=== PATIENT | female | born 1960 | race Hispanic/Latino ===

== ENCOUNTER 2017-11-07 18:49 | Emergency (ER) | payer OTHER, SELFPAY ==
[2017-11-07 19:22] LABS: Urine Blood NEGATIVE (NEG); Urine Glucose NEGATIVE (NEG); Urine Protein NEGATIVE (NEG); Urine Specific Gravity <1.005 (1.005-1.030); Urine pH 5.5 (5.0-7.0)
[2017-11-07 20:08] LABS: Absolute Lymphocytes (CBC) 2.4 K/uL (0.7-4.9); Absolute Monocytes 0.5 K/uL (0.1-1.3); Absolute Neutrophil 5.8 K/uL (1.8-8.0); Basophils % 1.1 % (0-1.3); Eosinophils % 2.2 % (0-4.4); Hematocrit 43.6 % (36.0-45.0); Lymphocytes % 26.7 % (15.3-44.8); MCH 34.1 pg (27.0-35.0); MCV 101.1 fL (80-100); MPV 11.4 fL (7.6-11.3); Monocytes % 5.7 % (3.3-12.3); Protime INR 0.94; RBC Red Blood Cell Count 4.31 M/uL (3.86-4.86)
[2017-11-07 20:25] LABS: ALT/SGPT 30 U/L (12-78); AST/SGOT 19 U/L (15-37); Albumin 3.7 g/dL (3.4-5.0); Alkaline Phosphatase 74 U/L (45-117); BUN Blood Urea Nitrogen 9 mg/dL (7-18); Bicarbonate 21 mmol/L (21-32); Bilirubin Direct < 0.1 mg/dL (0-0.2); Bilirubin Total 0.3 mg/dL (0.2-1.0); CKMB Creatine Kinase MB 1.3 ng/mL (0.3-3.6); Creatine Phosphokinase 85 U/L (26-192); Glucose Level 94 mg/dL (74-106); Magnesium 2.7 mg/dL (1.8-2.4); NT PRO-BNP 79 pg/mL (<125); Potassium 3.3 mmol/L (3.5-5.1); Protein, Total 7.2 g/dL (6.4-8.2); Sodium Level 144 mmol/L (136-145)
--- NOTE | 2017-11-07 20:49 | RAD REPORT ---
EXAM DESCRIPTION: RAD - Chest Single View - 11/07/2017 8:37 pm CLINICAL HISTORY: CHEST PAIN Chest pain. COMPARISON: Chest Single View dated 10/24/2016 FINDINGS: Portable technique limits examination quality. The lungs are grossly clear. The heart is normal in size. No displaced fractures. IMPRESSION: No acute intrathoracic process suspected.
[2017-11-07] MEDS ORDERED: NA CHLORIDE 0.9% 2,000 ML ONE (20:53)
[2017-11-07] MEDS ORDERED: MULTIVITAMINS 10 ML VIAL (INJ) IV ONE (20:53)
[2017-11-07] MEDS ORDERED: THIAMINE 200 MG/2 ML INJ ONE (20:53)
[2017-11-07] MEDS ORDERED: FOLIC ACID 5 MG/ML VIAL ONE (20:54)
[2017-11-07] MEDS ORDERED: PROMETHAZINE 25 MG/ML VIAL ONE (21:03)
[2017-11-07] MEDS ORDERED: POTASSIUM 25 MEQ EFFERV TAB ONE (21:03)
--- NOTE | 2017-11-07 21:57 | ER ---
Nurse's Notes [facility] Name: Alivia Gentile Age: 57 yrs Sex: Female : 1960 Arrival Date: 11/07/2017 Time: 18:52 Bed 24 Private MD: Diagnosis: Chest pain, unspecified;Alcohol abuse;Dehydration Presentation: 11/07 19:07 Presenting complaint: Patient states: "I AM HAVING THIS PAIN UNDER MY BREASTS ON BOTH rv SIDE FOR 2-3 WEEKS NOW. TODAY IT GOT WORSE.". Transition of care: patient was not received from another setting of care. Onset of symptoms was November 07, 2017 at 16:00. Risk Assessment: Do you want to hurt yourself or someone else? Patient reports no desire to harm self or others. Initial Sepsis Screen: Does the patient meet any 2 criteria? No. Patient's initial sepsis screen is negative. Does the patient have a suspected source of infection? No. Patient's initial sepsis screen is negative. Care prior to arrival: None. 19:07 Method Of Arrival: EMS: [facility] rv 19:07 Acuity: EILEEN 3 rv Historical: - Allergies: 19:09 No Known Allergies; rv - Home Meds: 19:09 None [Active]; rv - PMHx: 19:09 Asthma; Bronchitis; rv - Immunization history:: Adult Immunizations up to date. - Social history:: Smoking status: Patient uses tobacco products, smokes one-half pack cigarettes per day. - Ebola Screening: : Patient negative for fever greater than or equal to 101.5 degrees Fahrenheit, and additional compatible Ebola Virus Disease symptoms Patient denies exposure to infectious person Patient denies travel to an Ebola-affected area in the 21 days before illness onset. Screenin:10 Abuse screen: Denies threats or abuse. Denies injuries from another. Nutritional rv screening: No deficits noted. Tuberculosis screening: No symptoms or risk factors identified. Fall Risk None identified. Assessment: 19:09 General: Appears in no apparent distress. comfortable, Behavior is calm, cooperative. rv Pain: Complains of pain in chest. Pain: Pain does not radiate. Neuro: Level of Consciousness is awake, alert, obeys commands, Oriented to person, place, time, situation. Cardiovascular: Capillary refill < 3 seconds. Respiratory: Airway is patent. GI: No signs and/or symptoms were reported involving the gastrointestinal system. : No signs and/or symptoms were reported regarding the genitourinary system. EENT: No signs and/or symptoms were reported regarding the EENT system. Derm: Skin is intact. Vital Signs: 19:11 BP 100 / 59; Pulse 93; Resp 97; Weight 63.5 kg; rv 20:43 BP 107 / 73; Pulse 84; Pulse Ox 94% on R/A; rv 23:07 BP 136 / 64; Pulse 90; rv ED Course: 18:52 Patient arrived in ED. rv 19:09 Triage completed. rv 19:09 Srinivas Keane NP is PHCP. pm1 19:10 Arm band placed on left wrist. rv 19:11 Patient has correct armband on for positive identification. Placed in gown. Bed in low rv position. Call light in reach. Side rails up X 1. Pulse ox on. NIBP on. 19:31 Test, Serum Sent. rv 19:39 Hank Tsang MD is Attending Physician. pm1 20:37 XRAY Chest (1 view) In Process Unspecified. EDMS 22:00 No provider procedures requiring assistance completed. Inserted saline lock: 20 gauge rv in right forearm, using aseptic technique. 22:30 Inserted saline lock: in left forearm, using aseptic technique. rv 23:06 IV discontinued, bleeding controlled, No redness/swelling at site. Pressure dressing rv applied. Administered Medications: 20:55 Drug: Potassium Effervescent Tablet 50 mEq Route: PO; rv 23:07 Follow up: Response: No adverse reaction rv 20:55 Drug: Banana Bag - (NS 0.9% 1000 ml, foLIC Acid 1 mg, Thiamine 100 mg, Multivitamin 1 rv amp) Route: IV; Rate: calculated rate; Site: right antecubital; 23:07 Follow up: Response: No adverse reaction; IV Status: Completed infusion rv 20:55 Drug: NS 0.9% 1000 ml Route: IV; Rate: 1000 ml; Site: right antecubital; rv 23:07 Follow up: Response: No adverse reaction; IV Status: Completed infusion rv Outcome: 21:56 Discharge ordered by . pm1 23:06 Discharged to home via wheelchair. rv 23:06 Condition: improved 23:06 Discharge instructions given to patient. 23:08 Patient left the ED. rv Signatures: Dispatcher [employer] EDMS Marinas, Srinivas, FRAME BENDER FRAME BENDER pm1 Ace Ley, RN RN rv
--- NOTE | 2017-11-07 21:57 | EDPHYS ---
Physician Documentation [facility] Name: Alivia Gentile Age: 57 yrs Sex: Female : 1960 Arrival Date: 11/07/2017 Time: 18:52 Bed 24 Private MD: ED Physician Hank Tsang HPI: 11/07 21:27 This 57 yrs old Female presents to ER via EMS with complaints of chest pain. pm1 21:27 The patient or guardian reports chest pain that is located primarily in the focal point pm1 below right breast and left breast and focal point on xyphoid process. Onset: 3 week(s) ago. The pain does not radiate. Associated signs and symptoms: Pertinent negatives: abdominal pain, cough, headache, shortness of breath, syncope. The chest pain is described as sharp. Duration: The patient or guardian reports a single episode, that is still ongoing. Modifying factors: The symptoms are alleviated by nothing. the symptoms are aggravated by deep breath, palpation of area. Severity of pain: in the emergency department the pain is actually worse. The patient has experienced similar episodes in the past, symptoms have been ongoing for at least 1 year. The patient has not recently seen a physician. Patient drank alcohol prior to arrival and feels nauseated. No vomiting. Historical: - Allergies: 19:09 No Known Allergies; rv - Home Meds: 19:09 None [Active]; rv - PMHx: 19:09 Asthma; Bronchitis; rv - Immunization history:: Adult Immunizations up to date. - Social history:: Smoking status: Patient uses tobacco products, smokes one-half pack cigarettes per day. - Ebola Screening: : Patient negative for fever greater than or equal to 101.5 degrees Fahrenheit, and additional compatible Ebola Virus Disease symptoms Patient denies exposure to infectious person Patient denies travel to an Ebola-affected area in the 21 days before illness onset. ROS: 21:27 Constitutional: Negative for fever, chills, and weight loss, Eyes: Negative for injury, pm1 pain, redness, and discharge, ENT: Negative for injury, pain, and discharge, Neck: Negative for injury, pain, and swelling. 21:27 Respiratory: Negative for shortness of breath, cough, wheezing, and pleuritic chest pain, Back: Negative for injury and pain, : Negative for injury, bleeding, discharge, and swelling, MS/Extremity: Negative for injury and deformity, Skin: Negative for injury, rash, and discoloration, Neuro: Negative for headache, weakness, numbness, tingling, and seizure. 21:27 Cardiovascular: Positive for chest pain, Negative for edema, orthopnea, palpitations. 21:27 Abdomen/GI: Positive for nausea, Negative for abdominal pain, vomiting, diarrhea. Exam: 21:27 Constitutional: This is a well developed, well nourished patient who is awake, alert, pm1 and in no acute distress. Head/Face: Normocephalic, atraumatic. Eyes: Pupils equal round and reactive to light, extra-ocular motions intact. Lids and lashes normal. Conjunctiva and sclera are non-icteric and not injected. Cornea within normal limits. Periorbital areas with no swelling, redness, or edema. ENT: Nares patent. No nasal discharge, no septal abnormalities noted. Tympanic membranes are normal and external auditory canals are clear. Oropharynx with no redness, swelling, or masses, exudates, or evidence of obstruction, uvula midline. Mucous membranes moist. Neck: Trachea midline, no thyromegaly or masses palpated, and no cervical lymphadenopathy. Supple, full range of motion without nuchal rigidity, or vertebral point tenderness. No Meningismus. Cardiovascular: Regular rate and rhythm with a normal S1 and S2. No gallops, murmurs, or rubs. Normal PMI, no JVD. No pulse deficits. Respiratory: Lungs have equal breath sounds bilaterally, clear to auscultation and percussion. No rales, rhonchi or wheezes noted. No increased work of breathing, no retractions or nasal flaring. Abdomen/GI: Soft, non-tender, with normal bowel sounds. No distension or tympany. No guarding or rebound. No evidence of tenderness throughout. 21:27 Back: No spinal tenderness. No costovertebral tenderness. Full range of motion. Skin: Warm, dry with normal turgor. Normal color with no rashes, no lesions, and no evidence of cellulitis. MS/ Extremity: Pulses equal, no cyanosis. Neurovascular intact. Full, normal range of motion. 21:27 Chest/axilla: Inspection: normal, Palpation: tenderness, of the focal point tenderness to xyphoid area and focal point tenderness to lateral aspect below right breast and left breast that is symetrical , that totally reproduces the patient's complaints. 21:27 Neuro: Orientation: is normal, Motor: is normal, moves all fours. 21:27 NSR with occasional PVC pm1 Vital Signs: 19:11 BP 100 / 59; Pulse 93; Resp 97; Weight 63.5 kg; rv 20:43 BP 107 / 73; Pulse 84; Pulse Ox 94% on R/A; rv 23:07 BP 136 / 64; Pulse 90; rv MDM: 19:10 Patient medically screened. pm1 19:30 ED course: Patient refused pain medications offered in the ER. pm1 21:35 Data reviewed: vital signs. Data interpreted: Pulse oximetry: on room air is 97 %. pm1 Interpretation: normal. 21:56 Counseling: I had a detailed discussion with the patient and/or guardian regarding: the pm1 historical points, exam findings, and any diagnostic results supporting the discharge/admit diagnosis, lab results, radiology results, the need for outpatient follow up, to return to the emergency department if symptoms worsen or persist or if there are any questions or concerns that arise at home. 11/07 19:17 Order name: Urine Dipstick--Ancillary (enter results); Complete Time: 19:25 ms 11/07 19:27 Order name: Basic Metabolic Panel pm1 11/07 19:27 Order name: CBC with Diff pm1 11/07 19:27 Order name: Ckmb; Complete Time: 20:28 pm1 11/07 19:27 Order name: CPK; Complete Time: 20:28 pm1 11/07 19:27 Order name: LFT's; Complete Time: 20:28 pm1 11/07 19:27 Order name: Magnesium; Complete Time: 20:28 pm1 11/07 19:27 Order name: NT PRO-BNP; Complete Time: 20:28 pm1 11/07 19:27 Order name: PT-INR; Complete Time: 20:28 pm1 11/07 19:27 Order name: Ptt, Activated; Complete Time: 20:28 pm11/07 19:27 Order name: Troponin (emerg Dept Use Only); Complete Time: 20:46 pm1 11/07 19:27 Order name: Test, Serum; Complete Time: 20:14 pm1 11/07 19:27 Order name: Basic Metabolic Panel; Complete Time: 20:28 EDMS 11/07 19:27 Order name: CBC with Automated Diff; Complete Time: 20:28 EDMS 11/07 19:27 Order name: XRAY Chest (1 view); Complete Time: 20:56 pm1 11/07 19:27 Order name: EKG; Complete Time: 19:27 pm1 11/07 19:27 Order name: Cardiac monitoring; Complete Time: 19:32 pm1 11/07 19:27 Order name: EKG - Nurse/Tech; Complete Time: 19:32 pm1 11/07 19:27 Order name: IV Saline Lock; Complete Time: 19:32 pm1 11/07 19:27 Order name: Labs collected and sent; Complete Time: 19:32 pm1 11/07 19:27 Order name: O2 Per Protocol; Complete Time: 19:32 pm1 11/07 19:27 Order name: O2 Sat Monitoring; Complete Time: 19:32 pm1 11/07 19:27 Order name: Urine Dipstick-Ancillary (obtain specimen); Complete Time: 19:32 pm1 11/07 20:45 Order name: ETOH Level; Complete Time: 21:16 pm1 Administered Medications: 20:55 Drug: Potassium Effervescent Tablet 50 mEq Route: PO; rv 23:07 Follow up: Response: No adverse reaction rv 20:55 Drug: Banana Bag - (NS 0.9% 1000 ml, foLIC Acid 1 mg, Thiamine 100 mg, Multivitamin 1 rv amp) Route: IV; Rate: calculated rate; Site: right antecubital; 23:07 Follow up: Response: No adverse reaction; IV Status: Completed infusion rv 20:55 Drug: NS 0.9% 1000 ml Route: IV; Rate: 1000 ml; Site: right antecubital; rv 23:07 Follow up: Response: No adverse reaction; IV Status: Completed infusion rv Disposition: 11/08 00:32 Co-signature as Attending Physician, Hank Tsang MD. gs Disposition: 11/07/17 21:56 Discharged to Home. Impression: Chest pain, unspecified, Alcohol abuse, Dehydration. - Condition is Stable. - Discharge Instructions: Nonspecific Chest Pain, Chest Wall Pain, Dehydration, Adult, Rehydration, Adult. - Medication Reconciliation Form, Thank You Letter, Antibiotic Education, Prescription Opioid Use form. - Follow up: Emergency Department; When: As needed; Reason: Worsening of condition. Follow up: Private Physician; When: 2 - 3 days; Reason: Recheck today's complaints, Continuance of care, Re-evaluation by your physician. - Problem is new. - Symptoms have improved. Signatures: Dispatcher [employer] EDMS Srinivas Keane, FLASK CLEANER FLASK CLEANER pm1 Hank Tsang MD MD gs Vicente, Ronaldo RN RN rv Corrections: (The following items were deleted from the chart) 11/07 21:37 21:35 Data interpreted: Pulse oximetry: on room air pm1 pm1 23:08 21:56 11/07/2017 21:56 Discharged to Home. Impression: Chest pain, unspecified; Alcohol rv abuse; Dehydration. Condition is Stable. Discharge Instructions: Nonspecific Chest Pain, Chest Wall Pain, Dehydration, Adult, Rehydration, Adult. Forms are Medication Reconciliation Form, Thank You Letter, Antibiotic Education, Prescription Opioid Use. Follow up: Emergency Department; When: As needed; Reason: Worsening of condition. Follow up: Private Physician; When: 2 - 3 days; Reason: Recheck today's complaints, Continuance of care, Re-evaluation by your physician. Problem is new. Symptoms have improved. pm1
--- NOTE | 2017-11-08 06:10 | EKG ---
Test Date: 2017-11-07 Test Time: 20:00:44 Stone And Plate Preparer Apprentice: MEASUREMENT RESULTS: Intervals: Rate: 82 NJ: 150 QRSD: 88 QT: 384 QTc: 448 Cannon: P: 50 NJ: 150 QRS: 62 T: 39 INTERPRETIVE STATEMENTS: Sinus rhythm with occasional premature ventricular complexes Otherwise normal ECG Compared to ECG 10/24/2016 21:18:54 Ventricular premature complex(es) now present Electronically Signed On 11-08-17 06:09:24 CDT by El Harden
== END 2017-11-07 23:08 | disposition home or self-care (01) ==
LOC: ER 18:49
DX: R07.9 Chest pain, unspecified (principal); F10.10 Alcohol abuse, uncomplicated; E86.0 Dehydration; F17.210 Nicotine dependence, cigarettes, uncomplicated
CPT/HCPCS: 36415; 71045; 80048; 80076; 80320; 81003; 82550; 82553; 83735; 83880; 84484; 84703; 85025; 85610; 85730; 93005; 96365; 96366; 99284; J2550; J3411; J7030

== ENCOUNTER 2018-03-24 04:39 | Emergency (ER) | payer OTHER ==
[2018-03-24] MEDS ORDERED: HYDROCODONE/APAP 5/325 MG TAB ONE (05:20)
--- NOTE | 2018-03-24 06:14 | EDPHYS ---
Physician Documentation [facility] Name: Alivia Gentile Age: 58 yrs Sex: Female : 1960 Arrival Date: 03/24/2018 Time: 04:41 Bed 6 Private MD: Nicole Quintana ED Physician Alex Jacobson HPI: 03/24 05:56 This 58 yrs old Female presents to ER via Ambulatory with complaints of pkl Headache, Eye Pain. 05:56 The patient complains of pain to the forehead, right eye and left eye. The patient pkl describes the headache as constant. Onset: The symptoms/episode began/occurred 2 day(s) ago. Associated signs and symptoms: Pertinent positives: Photophobia. Historical: - Allergies: 05:01 No Known Allergies; aa1 - Home Meds: 05:01 ProAir HFA inhalation inhalation [Active]; metoprolol tartrate 25 mg Oral tab 1 tab aa1 once daily [Active]; - PMHx: 05:01 Asthma; Bronchitis; aa1 - PSHx: 05:01 Tubal ligation; aa1 - Immunization history:: Flu vaccine is not up to date. - Social history:: Smoking status: Patient uses tobacco products, smokes one pack cigarettes per day. - Ebola Screening: : No symptoms or risks identified at this time. ROS: 05:56 Eyes: Negative for injury, pain, redness, and discharge, ENT: Negative for injury, pkl pain, and discharge, Neck: Negative for injury, pain, and swelling, Cardiovascular: Negative for chest pain, palpitations, and edema, Respiratory: Negative for shortness of breath, cough, wheezing, and pleuritic chest pain, Abdomen/GI: Negative for abdominal pain, nausea, vomiting, diarrhea, and constipation, Back: Negative for injury and pain, : Negative for injury, bleeding, discharge, and swelling, MS/Extremity: Negative for injury and deformity, Skin: Negative for injury, rash, and discoloration. 05:56 Neuro: Positive for headache. Exam: 05:56 Head/Face: Normocephalic, atraumatic. Eyes: Pupils equal round and reactive to light, pkl extra-ocular motions intact. Lids and lashes normal. Conjunctiva and sclera are non-icteric and not injected. Cornea within normal limits. Periorbital areas with no swelling, redness, or edema. ENT: Nares patent. No nasal discharge, no septal abnormalities noted. Tympanic membranes are normal and external auditory canals are clear. Oropharynx with no redness, swelling, or masses, exudates, or evidence of obstruction, uvula midline. Mucous membranes moist. Neck: Trachea midline, no thyromegaly or masses palpated, and no cervical lymphadenopathy. Supple, full range of motion without nuchal rigidity, or vertebral point tenderness. No Meningismus. Chest/axilla: Normal chest wall appearance and motion. Nontender with no deformity. No lesions are appreciated. Cardiovascular: Regular rate and rhythm with a normal S1 and S2. No gallops, murmurs, or rubs. Normal PMI, no JVD. No pulse deficits. Respiratory: Lungs have equal breath sounds bilaterally, clear to auscultation and percussion. No rales, rhonchi or wheezes noted. No increased work of breathing, no retractions or nasal flaring. Abdomen/GI: Soft, non-tender, with normal bowel sounds. No distension or tympany. No guarding or rebound. No evidence of tenderness throughout. Back: No spinal tenderness. No costovertebral tenderness. Full range of motion. Skin: Warm, dry with normal turgor. Normal color with no rashes, no lesions, and no evidence of cellulitis. MS/ Extremity: Pulses equal, no cyanosis. Neurovascular intact. Full, normal range of motion. Neuro: Awake and alert, GCS 15, oriented to person, place, time, and situation. Cranial nerves II-XII grossly intact. Motor strength 5/5 in all extremities. Sensory grossly intact. Cerebellar exam normal. Normal gait. Vital Signs: 05:01 BP 144 / 93; Pulse 88; Resp 18; Temp 97.1; Pulse Ox 96% on R/A; Weight 66.68 kg; Height aa1 5 ft. 1 in. (154.94 cm); Pain 6/10; 06:13 BP 101 / 65; Pulse 68; Resp 16; Pulse Ox 96% on R/A; ak1 05:01 Body Mass Index 27.78 (66.68 kg, 154.94 cm) aa1 MDM: 05:54 Patient medically screened. pk 06:11 Data reviewed: vital signs, nurses notes, radiologic studies, CT scan. pk 12/26 04:55 Order name: CT Head Brain wo Cont aa1 Administered Medications: 05:18 Drug: [place] 5 mg-325 mg 1 tabs Route: PO; aa1 06:18 Follow up: Response: No adverse reaction ak1 Disposition: 03/24/18 06:12 Discharged to Home. Impression: Acute headache. Pain both eyes. - Condition is Stable. - Prescriptions for Ultram 50 mg Oral Tablet - take 1 tablet by ORAL route every 8 hours As needed; 20 tablet. - Work release form, Medication Reconciliation Form, Thank You Letter, Antibiotic Education, Prescription Opioid Use form. - Follow up: Jaswinder Dominguez MD; When: 2 - 3 days; Reason: Re-evaluation by your physician. - Problem is new. - Symptoms have improved. Signatures: Dispatcher [employer] EDRossi Tolentino RN RN aa1 Alex Jacobson MD MD pkl Lora Lyon RN RN ak1 Corrections: (The following items were deleted from the chart) 06:29 06:12 03/24/2018 06:12 Discharged to Home. Impression: Acute headache. Pain both eyes. ak1 Condition is Stable. Forms are Medication Reconciliation Form, Thank You Letter, Antibiotic Education, Prescription Opioid Use. Follow up: Jaswinder Dominguez; When: 2 - 3 days; Reason: Re-evaluation by your physician. Problem is new. Symptoms have improved. pkl
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
--- NOTE | 2018-03-24 08:40 | RAD REPORT ---
EXAM DESCRIPTION: CT - Head Brain Wo Cont - 03/24/2018 6:22 am CLINICAL HISTORY: Headache, photophobia A preliminary report was provided at the time of the study and reviewed prior to final report. COMPARISON: None. TECHNIQUE: Axial 5 mm thick images of the head were obtained without IV contrast. All CT scans are performed using dose optimization technique as appropriate and may include automated exposure control or mA/KV adjustment according to patient size. FINDINGS: No intracranial hemorrhage, mass, edema or shift of mid-line structures. No acute infarcti on changes seen. No abnormal extra-axial fluid collections. Ventricles are normal. Mastoid air cells and visualized portions of the paranasal sinuses are clear. No acute bony findings. IMPRESSION: Negative non-contrast CT head examination.
== END 2018-03-24 06:29 | disposition home or self-care (01) ==
LOC: ER 04:39
DX: H57.13 Ocular pain, bilateral (principal); R51 Headache; J45.909 Unspecified asthma, uncomplicated; F17.210 Nicotine dependence, cigarettes, uncomplicated; Z79.899 Other long term (current) drug therapy
CPT/HCPCS: 70450; 99285

== ENCOUNTER 2018-03-26 17:30 | Emergency (ER) | payer OTHER ==
[2018-03-26 19:43] LABS: Absolute Lymphocytes (CBC) 2.7 K/uL (0.7-4.9); Absolute Monocytes 0.2 K/uL (0.1-1.3); Absolute Neutrophil 4.6 K/uL (1.8-8.0); Basophils % 0.9 % (0-1.3); Eosinophils % 3.3 % (0-4.4); Lymphocytes % 34.1 % (15.3-44.8); MPV 11.3 fL (7.6-11.3); Monocytes % 2.8 % (3.3-12.3); Protime INR 0.98; RBC Red Blood Cell Count 4.78 M/uL (3.86-4.86)
--- NOTE | 2018-03-26 19:53 | RAD REPORT ---
EXAM DESCRIPTION: Reji Single View03/26/2018 6:57 pm CLINICAL HISTORY: Chest pain COMPARISON: October 2017 FINDINGS: Mild interstitial lung opacities appear chronic. The lungs appear clear of acute infiltra te. The heart is normal size . Right-sided aortic arch
[2018-03-26 20:06] LABS: ALT/SGPT 30 U/L (12-78); AST/SGOT 18 U/L (15-37); Albumin 3.8 g/dL (3.4-5.0); Alkaline Phosphatase 88 U/L (45-117); BUN Blood Urea Nitrogen 19 mg/dL (7-18); Bicarbonate 25 mmol/L (21-32); Bilirubin Direct < 0.1 mg/dL (0-0.2); Bilirubin Total 0.2 mg/dL (0.2-1.0); Glucose Level 157 mg/dL (74-106); Magnesium 2.4 mg/dL (1.8-2.4); NT PRO-BNP 65 pg/mL (<125); Potassium 3.7 mmol/L (3.5-5.1); Protein, Total 7.9 g/dL (6.4-8.2); Sodium Level 139 mmol/L (136-145); Troponin (Emerg Dept Use Only) < 0.02 ng/mL (0.0-0.045)
[2018-03-26 20:17] LABS: Blood Morphology Comment NOT SEEN (NOT SEEN); Platelet Estimate ADEQ; Platelets, Giant FEW; Urine White Blood Cell Casts OK
[2018-03-26 20:31] LABS: Urine Blood NEGATIVE (NEG); Urine Glucose NEGATIVE (NEG); Urine Protein NEGATIVE (NEG); Urine Specific Gravity 1.025 (1.005-1.030)
--- NOTE | 2018-03-26 20:55 | RAD REPORT ---
EXAM DESCRIPTION: MRI - Brain Wo Cont - 03/26/2018 8:39 pm CLINICAL HISTORY: Visual disturbance COMPARISON: March [address] TECHNIQUE: Axial, sagittal, and coronal magnetic resonance images of the brain were obtained. FINDINGS: No abnormal signal is present within the brain. Diffusion-weighted/ADC mapping does not reveal evidence of acute infarction. The ventricles are normal caliber. An extra-axial fluid collection is not noted. The sinuses and mastoids are clear. IMPRESSION: Unremarkable unenhanced brain MRI
[2018-03-26] MEDS ORDERED: DEXAMETHASONE 10 MG/ML VIAL ONE (22:11)
[2018-03-26] MEDS ORDERED: METOCLOPRAMIDE 10 MG/2mL INJ ONE (22:11)
[2018-03-26] MEDS ORDERED: DIPHENHYDRAMINE 50 MG/ML VIAL ONE (22:11)
[2018-03-26 22:21] LABS: Appearance CLEAR (CLEAR); Body Fluid Source CSF; Color of fluid Colorless (COLORLESS); Fluid Total Volume 8 ml
[2018-03-26 22:23] LABS: Body Fluid WBC 0 /mm^3
[2018-03-26 22:39] LABS: CSF Glucose 71 mg/dL (40-70)
[2018-03-26 22:40] LABS: Appearance CLEAR (CLEAR); Body Fluid Source CSF; Color of fluid Colorless (COLORLESS)
[2018-03-26 22:41] LABS: Body Fluid WBC 2 /mm^3
--- NOTE | 2018-03-26 23:34 | EDPHYS ---
Physician Documentation [facility] Name: Alivia Gentile Age: 58 yrs Sex: Female : 1960 Arrival Date: 03/26/2018 Time: 17:36 Bed 8 Private MD: ED Physician Philippe Jimenez HPI: 03/26 19:26 This 58 yrs old Female presents to ER via Ambulatory with complaints of jr8 headache. 19:26 The patient's problem is reported as visual difficulty, blurred vision, headache. jr8 Onset: The symptoms/episode began/occurred gradually, 2 week(s) ago. Duration: The episode is continuous. The symptoms are alleviated by nothing. The symptoms are aggravated by nothing. Associated signs and symptoms: The patient has no apparent associated signs or symptoms. Severity of symptoms: At their worst the symptoms were moderate in the emergency department the symptoms are unchanged. Patient's baseline: Neuro: alert and fully oriented, Motor: no deficits, Ambulation: walks without assistance, Speech: normal. The patient has not experienced similar symptoms in the past. The patient has been recently seen by a physician:. Patient with continued headache and blurred vision for the past two weeks. Seen in the ED here on the 24 of March and had negative CT head without contrast. Saw PCP and was referred to ophthalmology. Was seen and found to have papillary edema. By his request was sent back to ED for further evaluation. Patient with continued symptoms. Nurse notified staff of initial low heart rate but without chest pain, shortness of breath, or feeling of syncope . Historical: - Allergies: 18:32 No Known Allergies; aj - Home Meds: 18:32 metoprolol tartrate 25 mg Oral tab 1 tab once daily [Active]; aj - PMHx: 18:32 Bronchitis; Asthma; Iregular Heart Rate; aj - PSHx: 18:32 Tubal ligation; aj - Immunization history:: Adult Immunizations up to date. - Social history:: Smoking status: Patient uses tobacco products, smokes one-half pack cigarettes per day. - Ebola Screening: : Patient negative for fever greater than or equal to 101.5 degrees Fahrenheit, and additional compatible Ebola Virus Disease symptoms Patient denies exposure to infectious person Patient denies travel to an Ebola-affected area in the 21 days before illness onset No symptoms or risks identified at this time. ROS: 19:26 Eyes: Negative for injury, pain, redness, and discharge, ENT: Negative for injury, jr8 pain, and discharge, Neck: Negative for injury, pain, and swelling, Cardiovascular: Negative for chest pain, palpitations, and edema, Respiratory: Negative for shortness of breath, cough, wheezing, and pleuritic chest pain, Abdomen/GI: Negative for abdominal pain, nausea, vomiting, diarrhea, and constipation, Back: Negative for injury and pain, MS/Extremity: Negative for injury and deformity, Skin: Negative for injury, rash, and discoloration. 19:26 Neuro: Positive for dizziness, headache, visual changes, Negative for hearing loss, loss of consciousness, numbness, seizure activity, speech changes, syncope, near syncope, tingling, tinnitus, tremor, weakness. Exam: 19: Radiologist reports: negative for acute findings jr8 19:26 Eyes: Pupils equal round and reactive to light, extra-ocular motions intact. Lids and lashes normal. Conjunctiva and sclera are non-icteric and not injected. Cornea within normal limits. Periorbital areas with no swelling, redness, or edema. ENT: Nares patent. No nasal discharge, no septal abnormalities noted. Tympanic membranes are normal and external auditory canals are clear. Oropharynx with no redness, swelling, or masses, exudates, or evidence of obstruction, uvula midline. Mucous membranes moist. Neck: Trachea midline, no thyromegaly or masses palpated, and no cervical lymphadenopathy. Supple, full range of motion without nuchal rigidity, or vertebral point tenderness. No Meningismus. Cardiovascular: Regular rate and rhythm with a normal S1 and S2. No gallops, murmurs, or rubs. Normal PMI, no JVD. No pulse deficits. Respiratory: Lungs have equal breath sounds bilaterally, clear to auscultation and percussion. No rales, rhonchi or wheezes noted. No increased work of breathing, no retractions or nasal flaring. Abdomen/GI: Soft, non-tender, with normal bowel sounds. No distension or tympany. No guarding or rebound. No evidence of tenderness throughout. Back: No spinal tenderness. No costovertebral tenderness. Full range of motion. Skin: Warm, dry with normal turgor. Normal color with no rashes, no lesions, and no evidence of cellulitis. MS/ Extremity: Pulses equal, no cyanosis. Neurovascular intact. Full, normal range of motion. 19:26 Neuro: Orientation: to person, place, time \T\ situation. Mentation: is normal, Memory: is normal, immediate memory is intact, recent memory is intact, remote memory is intact, Cranial nerves: CN I not tested, CN II- XII are normal as tested, visual benitez are intact. double vision in periphery . extraocular movements are intact, Facial palsy and sensory deficits are absent. Nystagmus is absent. Speech is clear and appropriate. Tongue strength is normal, Cerebellar function: normal finger to nose testing, heel to glasgow testing is normal, Motor: moves all fours, strength is 5/5 in all extremities, Sensation: no obvious gross deficits, Gait: not tested. seizure activity, is not displayed by the patient, Abnormal movements: there are no abnormal movements. Vital Signs: 18:32 BP 122 / 74; Pulse 66; Resp 17; Temp 97.7; Pulse Ox 97% on R/A; Weight 67.13 kg; Height aj 5 ft. 1 in. (154.94 cm); 18:32 Pulse 29; aj 19:41 BP 131 / 86; Pulse 76; Resp 14; Pulse Ox 96% on R/A; tl2 20:45 BP 137 / 72; Pulse 86; Resp 18; Pulse Ox 97% on R/A; tl2 21:41 BP 130 / 70; Pulse 80; Resp 15; Pulse Ox 95% on R/A; tl2 22:18 BP 119 / 83; Pulse 75; Resp 13; Pulse Ox 97% on R/A; tl2 22:57 BP 112 / 77; Pulse 91; Resp 18; Pulse Ox 97% on R/A; tl2 23:52 BP 132 / 82; Pulse 91; Resp 18; Pulse Ox 95% ; Pain 4/10; tl2 18:32 Body Mass Index 27.96 (67.13 kg, 154.94 cm) aj 18:32 verified with palpable pulse aj NIH Stroke Scale Scores: 19:26 NIHSS Score: 0 jr8 Procedures: 23:28 Lumbar Puncture: Patient placed in left lateral decubitus position. Prepped with jr8 Betadine. Draped using sterile technique. Collected 8 ml's of clear fluid. Sample sent to lab. Puncture site dressed with band aid, Patient tolerated well. Opening pressure 15 cmH2O. MDM: 18:39 Patient medically screened. [facility] 23:28 Data reviewed: vital signs, nurses notes, lab test result(s), EKG, radiologic studies, jr8 CT scan, MRI. Data interpreted: Pulse oximetry: on room air is 97 %. Interpretation: normal. Counseling: I had a detailed discussion with the patient and/or guardian regarding: the historical points, exam findings, and any diagnostic results supporting the discharge/admit diagnosis, lab results, radiology results, the need for outpatient follow up, a neurologist, to return to the emergency department if symptoms worsen or persist or if there are any questions or concerns that arise at home. 23:28 ED course: Negative for acute MRI or CSF findings. Patient without acute neurologic [facility] deficit. Will send home for further neurological evaluation to be worked up as outpatient at this time. If worse she knows to immediately come back . 03/26 18:40 Order name: Basic Metabolic Panel; Complete Time: 20:09 [facility] 03/26 18:40 Order name: CBC with Diff; Complete Time: 20:21 [facility] 03/26 18:40 Order name: LFT's; Complete Time: 20:09 [facility] 03/26 18:40 Order name: Magnesium; Complete Time: 20:09 [facility] 03/26 18:40 Order name: NT PRO-BNP; Complete Time: 20:09 [facility] 03/26 18:40 Order name: PT-INR; Complete Time: 19:49 [facility] 03/26 18:40 Order name: Troponin (emerg Dept Use Only); Complete Time: 20:09 [facility] 03/26 18:40 Order name: XRAY Chest (1 view); Complete Time: 20:09 [facility] 03/26 19:30 Order name: Urine Dipstick--Ancillary (enter results); Complete Time: 20:32 2 03/26 19:53 Order name: CBC Smear Scan; Complete Time: 20:21 EDMS 03/26 21:48 Order name: CSF Bacterial Antigens (tube 1); Complete Time: 22:43 [facility] 03/26 21:48 Order name: Csf Culture [facility] 03/26 21:48 Order name: Fluid Cell Count,Body; Complete Time: 22:43 [facility] 03/26 21:48 Order name: Spinal Fluid Profile; Complete Time: 22:43 03/26 18:40 Order name: EKG; Complete Time: 18:41 03/26 18:40 Order name: Cardiac monitoring; Complete Time: 19:09 03/26 18:40 Order name: EKG - Nurse/Tech; Complete Time: 19:14 03/26 18:40 Order name: IV Saline Lock; Complete Time: 20:08 03/26 18:40 Order name: Labs collected and sent; Complete Time: 19:32 03/26 18:40 Order name: O2 Per Protocol; Complete Time: 19:09 03/26 18:40 Order name: O2 Sat Monitoring; Complete Time: 19:09 03/26 19:08 Order name: MRI - Brain Wo Cont; Complete Time: 20:56 03/26 19:16 Order name: LP Consents; Complete Time: 19:16 03/26 19:16 Order name: LP Setup; Complete Time: 19:16 Administered Medications: 22:13 Drug: Reglan 10 mg Route: IVP; Site: right antecubital; tl2 23:00 Follow up: Response: No adverse reaction; Pain is decreased tl2 22:14 Drug: Benadryl 12.5 mg Route: IVP; Site: right antecubital; tl2 23:00 Follow up: Response: No adverse reaction; Pain is decreased tl2 22:14 Drug: Decadron - Dexamethasone 10 mg Route: IVP; Site: right antecubital; tl2 23:00 Follow up: Response: No adverse reaction; Pain is decreased tl2 Disposition: 03/26/18 23:33 Discharged to Home. Impression: Migraine, Visual disturbances. - Condition is Stable. - Discharge Instructions: Migraine Headache. - Medication Reconciliation Form, Thank You Letter, Antibiotic Education, Prescription Opioid Use, Work release form form. - Follow up: Jim Clark MD; When: 2 - 3 days; Reason: Recheck today's complaints, Continuance of care, Re-evaluation by your physician. - Problem is new. - Symptoms have improved. NIH Stroke Scale - NIH Stroke Score Date: 03/26/2018 Time: 19:26 Total Score = 0 1a. Level of Consciousness (LOC) - 0(Alert) 1b. Level of Consciousness (LOC) (Year \T\ Age) - 0(Both) 1c. LOC Commands (Open \T\ Closes Eyes/Hospice Volunteer Coordinator) - 0(Both) 2. Best Gaze (Lateral Gaze Paresis) - 0(Normal) 3. Visual Field Loss - 0(No visual loss) 4. Facial Palsy - 0(Normal) 5a. Left Arm: Motor (10-second hold) - 0(No drift) 5b. Right Arm: Motor (10-second hold) - 0(No drift) 6a. Left Leg: Motor (5-second hold - always test supine) - 0(No drift) 6b. Right Leg: Motor (5-second hold - always test supine) - 0(No drift) 7. Limb Ataxia (finger/nose \T\ heel/glasgow - test with eyes open) - 0(Absent) 8. Sensory Loss (pinprick arms/legs/face) - 0(Normal) 9. Best Language: Aphasia (description/naming/reading) - 0(No aphasia) 10. Dysarthria (speech clarity - read or repeat words) - 0(Normal) 11. Extinction and Inattention (visual/tactile/auditory/spatial/personal) - 0(No abnormality) Initials: jr8 Addendum: 03/30/2018 11:10 Co-signature as Attending Physician, Philippe Jimenez MD I agree with the [facility] assessment and plan of care. Signatures: Dispatcher [employer] Shauna Madera RN RN aj Anderson, Corey, MD MD [facility] Kameron Hall PA PA jr8 Sharon Rutherford RN RN tl2 Corrections: (The following items were deleted from the chart) 03/26 19:29 19:26 Neuro: Positive for headache, visual changes, jrVaibhav jr8 23:31 23:28 Lumbar Puncture: Patient placed in left lateral decubitus position. jr8 Prepped with Betadine. Draped using sterile technique. Collected 8 ml's of clear fluid. Sample sent to lab. Puncture site dressed with band aid, Patient tolerated well. jr8 03/27 00:08 03/26 23:33 03/26/2018 23:33 Discharged to Home. Impression: Migraine; Visual tl2 disturbances. Condition is Stable. Forms are Medication Reconciliation Form, Thank You Letter, Antibiotic Education, Prescription Opioid Use. Follow up: Jim Clark; When: 2 - 3 days; Reason: Recheck today's complaints, Continuance of care, Re-evaluation by your physician. Problem is new. Symptoms have improved. jr8
--- NOTE | 2018-03-26 23:34 | ER ---
Nurse's Notes [facility] Name: Alivia Gentile Age: 58 yrs Sex: Female : 1960 Arrival Date: 03/26/2018 Time: 17:36 Bed 8 Private MD: Diagnosis: Migraine;Visual disturbances Presentation: 03/26 18:30 Presenting complaint: Patient states: Reports headache and blurred vision that started aj 2 weeks ago. Patient seen in this ER for same complaint and followed up with PCP, then referred to Dr Dominguez. Sent here by Dr Dominguez for MRI/MRV and lumbar puncture. Transition of care: patient was not received from another setting of care. Onset of symptoms was March 12, 2018. Risk Assessment: Do you want to hurt yourself or someone else? Patient reports no desire to harm self or others. Initial Sepsis Screen: Does the patient meet any 2 criteria? No. Patient's initial sepsis screen is negative. Does the patient have a suspected source of infection? No. Patient's initial sepsis screen is negative. Care prior to arrival: None. 18:30 Method Of Arrival: Ambulatory 18:30 Acuity: EILEEN 3 aj Triage Assessment: 18:32 General: Appears in no apparent distress. comfortable, Behavior is calm, cooperative, aj appropriate for age. Pain: Complains of pain in face and scalp. Neuro: Level of Consciousness is awake, alert, obeys commands, Oriented to person, place, time, situation, Appropriate for age Reports blurred vision headache. Respiratory: Airway is patent Respiratory effort is even, unlabored, Respiratory pattern is regular, symmetrical. Derm: Skin is intact, is healthy with good turgor, Skin is pink, warm \T\ dry. normal. Historical: - Allergies: 18:32 No Known Allergies; aj - Home Meds: 18:32 metoprolol tartrate 25 mg Oral tab 1 tab once daily [Active]; aj - PMHx: 18:32 Bronchitis; Asthma; Iregular Heart Rate; aj - PSHx: 18:32 Tubal ligation; aj - Immunization history:: Adult Immunizations up to date. - Social history:: Smoking status: Patient uses tobacco products, smokes one-half pack cigarettes per day. - Ebola Screening: : Patient negative for fever greater than or equal to 101.5 degrees Fahrenheit, and additional compatible Ebola Virus Disease symptoms Patient denies exposure to infectious person Patient denies travel to an Ebola-affected area in the 21 days before illness onset No symptoms or risks identified at this time. Screenin:37 Abuse screen: Denies threats or abuse. Denies injuries from another. Nutritional hb screening: No deficits noted. Tuberculosis screening: No symptoms or risk factors identified. Fall Risk Total Alvarado Fall Scale indicates Low Risk Score (25-44 pts). Fall prevention measures have been instituted. Frequent Obs/Assesments occuring As available Patient and Family Educated on Fall Prevention Program and strategies. Assessment: 18:30 General: Appears in no apparent distress. Behavior is calm, cooperative. Pain: Pain hb currently is 3 out of 10 on a pain scale. Neuro: Level of Consciousness is awake, alert, obeys commands, Oriented to person, place, time, situation, Reports headache. Cardiovascular: Heart tones S1 S2 present Capillary refill < 3 seconds Patient's skin is warm and dry. Respiratory: Airway is patent Trachea midline Respiratory effort is even, unlabored, Respiratory pattern is regular, symmetrical, Breath sounds are clear bilaterally. GI: No signs and/or symptoms were reported involving the gastrointestinal system. : No signs and/or symptoms were reported regarding the genitourinary system. EENT: No signs and/or symptoms were reported regarding the EENT system. Derm: Skin is intact, is healthy with good turgor, Skin is pink, warm \T\ dry. Musculoskeletal: No signs and/or symptoms reported regarding the musculoskeletal system. 19:42 General: Appears in no apparent distress. uncomfortable, Behavior is calm, cooperative, tl2 appropriate for age. Pain: Complains of pain in headache Pain currently is 9 out of 10 on a pain scale. Neuro: Level of Consciousness is awake, alert, obeys commands, Oriented to person, place, time, situation, Reports headache frontal area. Cardiovascular: Denies chest pain. Respiratory: Airway is patent Respiratory effort is even, unlabored, Respiratory pattern is regular, symmetrical. GI: No signs and/or symptoms were reported involving the gastrointestinal system. : No signs and/or symptoms were reported regarding the genitourinary system. Derm: Skin is pink, warm \T\ dry. 20:49 Reassessment: Patient appears in no apparent distress at this time. Patient and/or tl2 family updated on plan of care and expected duration. Pain level reassessed. Patient is alert, oriented x 3, equal unlabored respirations, skin warm/dry/pink. pt returned from MRI, awaiting PA for LP. 22:00 Reassessment: Patient appears in no apparent distress at this time. Patient and/or tl2 family updated on plan of care and expected duration. Pain level reassessed. Patient is alert, oriented x 3, equal unlabored respirations, skin warm/dry/pink. 23:52 Reassessment: Patient appears in no apparent distress at this time. Patient and/or tl2 family updated on plan of care and expected duration. Pain level reassessed. Patient is alert, oriented x 3, equal unlabored respirations, skin warm/dry/pink. Pt verbalized understanding of discharge instructions, need for follow up. Vital Signs: 18:32 BP 122 / 74; Pulse 66; Resp 17; Temp 97.7; Pulse Ox 97% on R/A; Weight 67.13 kg; Height aj 5 ft. 1 in. (154.94 cm); 18:32 Pulse 29; aj 19:41 BP 131 / 86; Pulse 76; Resp 14; Pulse Ox 96% on R/A; tl2 20:45 BP 137 / 72; Pulse 86; Resp 18; Pulse Ox 97% on R/A; tl2 21:41 BP 130 / 70; Pulse 80; Resp 15; Pulse Ox 95% on R/A; tl2 22:18 BP 119 / 83; Pulse 75; Resp 13; Pulse Ox 97% on R/A; tl2 22:57 BP 112 / 77; Pulse 91; Resp 18; Pulse Ox 97% on R/A; tl2 23:52 BP 132 / 82; Pulse 91; Resp 18; Pulse Ox 95% ; Pain 4/10; tl2 18:32 Body Mass Index 27.96 (67.13 kg, 154.94 cm) aj 18:32 verified with palpable pulse aj Vitals: 19:41 Cardiac Rhythm Assessment Sinus rhythm W/unifocal PVC's. tl2 21:41 Cardiac Rhythm Assessment Sinus rhythm W/unifocal PVC's. tl2 NIH Stroke Scale Scores: 19:26 NIHSS Score: 0 jr8 ED Course: 17:36 Patient arrived in ED. sb2 18:30 Patient has correct armband on for positive identification. Placed in gown. Bed in low hb position. Call light in reach. Side rails up X 1. 18:31 Triage completed. aj 18:32 Arm band placed on left wrist. Patient placed in an exam room. aj 18:38 Kameron Hall PA is PHCP. jr8 18:39 Philippe Jimenez MD is Attending Physician. jr8 18:58 XRAY Chest (1 view) In Process Unspecified. EDMS 19:41 Sharon Rutherford, ALWSON is Primary Nurse. tl2 19:42 Missed attempt(s): 22 gauge in right wrist. tl2 20:00 Inserted saline lock: 22 gauge in right antecubital area, using aseptic technique. mt 20:18 Patient moved to MRI via wheelchair. em2 20:39 MRI - Brain Wo Cont In Process Unspecified. EDMS 21:50 Assist provider with lumbar puncture: Set up LP tray. Performed by Kameron BROWN CSF tl2 is clear. Puncture site dressed with band aid, Procedure was successful. Patient tolerated well. 23:33 Jim Clark MD is Referral Physician. jr8 23:54 IV discontinued, intact, bleeding controlled, No redness/swelling at site. Pressure tl2 dressing applied. Administered Medications: 22:13 Drug: Reglan 10 mg Route: IVP; Site: right antecubital; tl2 23:00 Follow up: Response: No adverse reaction; Pain is decreased tl2 22:14 Drug: Benadryl 12.5 mg Route: IVP; Site: right antecubital; tl2 23:00 Follow up: Response: No adverse reaction; Pain is decreased tl2 22:14 Drug: Decadron - Dexamethasone 10 mg Route: IVP; Site: right antecubital; tl2 23:00 Follow up: Response: No adverse reaction; Pain is decreased tl2 Outcome: 23:33 Discharge ordered by . jr8 23:54 Discharged to home via wheelchair, with family. tl2 23:54 Condition: stable 23:54 Discharge instructions given to patient, family, Instructed on discharge instructions, follow up and referral plans. Demonstrated understanding of instructions, follow-up care. 03/27 00:08 Patient left the ED. tl2 NIH Stroke Scale - NIH Stroke Score Date: 03/26/2018 Time: 19:26 Total Score = 0 1a. Level of Consciousness (LOC) - 0(Alert) 1b. Level of Consciousness (LOC) (Year \T\ Age) - 0(Both) 1c. LOC Commands (Open \T\ Closes Eyes/Biologist Aide) - 0(Both) 2. Best Gaze (Lateral Gaze Paresis) - 0(Normal) 3. Visual Field Loss - 0(No visual loss) 4. Facial Palsy - 0(Normal) 5a. Left Arm: Motor (10-second hold) - 0(No drift) 5b. Right Arm: Motor (10-second hold) - 0(No drift) 6a. Left Leg: Motor (5-second hold - always test supine) - 0(No drift) 6b. Right Leg: Motor (5-second hold - always test supine) - 0(No drift) 7. Limb Ataxia (finger/nose \T\ heel/glasgow - test with eyes open) - 0(Absent) 8. Sensory Loss (pinprick arms/legs/face) - 0(Normal) 9. Best Language: Aphasia (description/naming/reading) - 0(No aphasia) 10. Dysarthria (speech clarity - read or repeat words) - 0(Normal) 11. Extinction and Inattention (visual/tactile/auditory/spatial/personal) - 0(No abnormality) Initials: jrVaibhav Signatures: Dispatcher [employer] Shauna Madera RN Kameron Garcia PA PA jr8 Sukumar Chen em2 Mey Wade RN RN Sharon Rutherford RN RN tl2 David, [facility] Marivel Shelby 2
--- NOTE | 2018-03-27 08:28 | EKG ---
Test Date: 2018-03-26 Test Time: 19:06:53 Tax Specialist: NARENDRA MEASUREMENT RESULTS: Intervals: Rate: 85 NE: 146 QRSD: 80 QT: 360 QTc: 428 [place]: P: 39 NE: 146 QRS: 40 T: 14 INTERPRETIVE STATEMENTS: Sinus rhythm with frequent premature ventricular complexes Otherwise normal ECG Compared to ECG 11/07/2017 20:00:44 No significant changes Electronically Signed On 03-27-18 08:27:54 CURTAIN CUTTER by El Harden
== END 2018-03-27 00:08 | disposition home or self-care (01) ==
LOC: ER 17:30
PROC: 009U3ZX Drainage of Spinal Canal, Percutaneous Approach, Diagnostic (ICD-10-PCS; principal; 2018-03-26)
DX: G43.909 Migraine, unspecified, not intractable, without status migrainosus (principal); H53.9 Unspecified visual disturbance; F17.210 Nicotine dependence, cigarettes, uncomplicated
CPT/HCPCS: 36415; 62270; 70551; 71045; 80048; 80076; 81003; 82945; 83735; 83880; 84157; 84484; 85025; 85610; 86403; 87070; 89050; 93005; 96374; 96375; 99285; J1100; J2765

== ENCOUNTER 2019-05-31 10:47 | Emergency (ER) | payer BC, OTHER ==
--- OUTSIDE RECORDS SUMMARY | 2019-05-31 10:50 | XMS REPORT ---
:1960 Author Organization eClinicalWorks Care Team Providers Name Role Phone Jodee Quintana Provider Role Unavailable Allergies, Adverse Reactions, Alerts Substance Reaction Event Type N.K.D.A. Info Not Available Non Drug Allergy Problems Problem Type Condition Code Onset Dates Condition Status Problem Irregular heart rate I49.9 Active Problem PVC (premature ventricular I49.3 Active contraction) Problem Sinusitis chronic, frontal J32.1 Active Assessment Other headache syndrome G44.89 Active Assessment Sudden visual loss of both eyes H53.133 Active Problem Sudden visual loss of both eyes H53.133 Active Problem Nicotine dependence, uncomplicated, F17.200 Active unspecified nicotine product type Problem Other headache syndrome G44.89 Active Problem Menopause Z78.0 Active Problem Irregular heartbeat I49.9 Active Problem Uncomplicated asthma, unspecified J45.909 Active asthma severity, unspecified whether persistent Problem Breast mass N63.0 Active Medications Medication Code Code Instructions Start End Date Status Dosage System Date ProAir HFA [facility] 50377376361 108 (90 Base) Mar 09, Active 2 puffs MCG/ACT 2017 as needed Inhalation every 6 hrs Metoprolol [facility] 44678038206 25 MG Orally Active 1 tablet Succinate ER Once a day Results No Known Results Summary Purpose eClinicalWorks Submission
--- OUTSIDE RECORDS SUMMARY | 2019-05-31 10:50 | XMS REPORT ---
:1960 Author Organization [employer] Care Team Providers Name Role Phone Jodee Quintana Provider Role Unavailable Allergies, Adverse Reactions, Alerts Substance Reaction Event Type N.K.D.A. Info Not Available Non Drug Allergy Problems Problem Type Condition Code Onset Dates Condition Status Problem Menopause Z78.0 Active Problem Uncomplicated asthma, unspecified J45.909 Active asthma severity, unspecified whether persistent Problem Breast mass N63.0 Active Problem Seasonal allergies J30.2 Active Problem Severe asthma with exacerbation, J45.901 Active unspecified whether persistent Problem Cough R05 Active Problem Sudden visual loss of both eyes H53.133 Active Problem Nicotine dependence, uncomplicated, F17.200 Active unspecified nicotine product type Problem Exacerbation of asthma, unspecified J45.901 Active asthma severity, unspecified whether persistent Problem Other headache syndrome G44.89 Active Assessment Cough R05 Active Assessment Uncomplicated asthma, unspecified J45.909 Active asthma severity, unspecified whether persistent Problem Irregular heart rate I49.9 Active Problem Sinusitis chronic, frontal J32.1 Active Assessment Irregular heartbeat I49.9 Active Problem PVC (premature ventricular I49.3 Active contraction) Problem Irregular heartbeat I49.9 Active Medications Medication Code Code Instructions Start End Status Dosage System Date Date Benzonatate [facility] [id number] 150 MG Orally October 19, Nov 18, Active 1 capsule Three times a 2018 2018 day Metoprolol [facility] 36687764192 25 MG Orally Active 1 tablet Succinate ER Once a day ProAir HFA [facility] [id number] 108 (90 Base) Mar 09, Active 2 puffs as MCG/ACT 2018 needed Inhalation every 6 hrs Results Name Result Date Reference Range Unit Abnormality Flag FLU TEST A/B ----A Negative [id number] ----B Negative [id number] Summary Purpose eClinicalWorks Submission
--- OUTSIDE RECORDS SUMMARY | 2019-05-31 10:50 | XMS REPORT ---
:1960 Author Organization eClinicalWorks Care Team Providers Name Role Phone Jodee Quintana Provider Role Unavailable Allergies, Adverse Reactions, Alerts Substance Reaction Event Type N.K.D.A. Info Not Available Non Drug Allergy Problems Problem Type Condition Code Onset Dates Condition Status Assessment Acute eye pain H57.10 Active Problem Sinusitis chronic, frontal J32.1 Active Assessment Photophobia of both eyes H53.143 Active Problem Irregular heartbeat I49.9 Active Problem Nicotine dependence, uncomplicated, F17.200 Active unspecified nicotine product type Problem Menopause Z78.0 Active Problem Irregular heart rate I49.9 Active Problem PVC (premature ventricular I49.3 Active contraction) Problem Uncomplicated asthma, unspecified J45.909 Active asthma severity, unspecified whether persistent Problem Breast mass N63.0 Active Medications Medication Code Code Instructions Start End Date Status Dosage System Date ProAir HFA [facility] [id number] 108 (90 Base) Mar 09, Active 2 puffs MCG/ACT 2017 as needed Inhalation every [address] [facility] 00186381710 25 MG Orally Mar 09, Active 1 tablet Succinate ER Once a day 2018 Results No Known Results Summary Purpose eClinicalWorks Submission
--- OUTSIDE RECORDS SUMMARY | 2019-05-31 10:50 | XMS REPORT ---
:1960 Author Organization eClinicalWorks Care Team Providers Name Role Phone RoelKeny Provider Role Unavailable Allergies, Adverse Reactions, Alerts Substance Reaction Event Type N.K.D.A. Info Not Available Non Drug Allergy Problems Problem Type Condition Code Onset Dates Condition Status Problem Irregular heartbeat I49.9 Active Problem Breast mass N63.0 Active Problem Menopause Z78.0 Active Problem Severe asthma with exacerbation, J45.901 Active unspecified whether persistent Problem Exacerbation of asthma, unspecified J45.901 Active asthma severity, unspecified whether persistent Problem Seasonal allergies J30.2 Active Problem Nicotine dependence, uncomplicated, F17.200 Active unspecified nicotine product type Problem Uncomplicated asthma, unspecified J45.909 Active asthma severity, unspecified whether persistent Problem Other headache syndrome G44.89 Active Problem Sudden visual loss of both eyes H53.133 Active Assessment Exacerbation of asthma, unspecified J45.901 Active asthma severity, unspecified whether persistent Problem Irregular heart rate I49.9 Active Assessment Seasonal allergies J30.2 Active Problem Sinusitis chronic, frontal J32.1 Active Assessment Strep pharyngitis J02.0 Active Problem PVC (premature ventricular I49.3 Active contraction) Medications Medication Code Code Instructions Start End Status Dosage System Date Date Carbinoxamine [facility] 79812016175 4 MG Orally August 10August 20, Active 1 tablet Maleate Three times a 2018 2018 as needed day Metoprolol [facility] 25876794319 25 MG Orally Active 1 tablet Succinate ER Once a day ProAir HFA [facility] 56373695021 108 (90 Base) Mar 09, Active 2 puffs MCG/ACT 2017 as needed Inhalation every 6 hrs PredniSONE ND 72916976811 10 MG () August 10, August 19, Active 2 tabs Orally as 2018 2018 bid for 3 directed days, then 1 tab bid for 3 days then 1tab qday for 3 days then stop Augmentin [facility] 29236984210 875-125 MG August 10August 17, Active 1 tablet Orally every 12 2019 2019 hrs Results No Known Results Summary Purpose eClinicalWorks Submission
--- OUTSIDE RECORDS SUMMARY | 2019-05-31 10:50 | XMS REPORT ---
:1960 Author Organization eClinicalWorks Care Team Providers Name Role Phone Jodee Quintana Provider Role Unavailable Allergies, Adverse Reactions, Alerts Substance Reaction Event Type N.K.D.A. Info Not Available Non Drug Allergy Problems Problem Type Condition Code Onset Dates Condition Status Assessment Acute non-recurrent frontal J01.10 Active sinusitis Problem Sinusitis chronic, frontal J32.1 Active Assessment PVC (premature ventricular I49.3 Active contraction) Assessment Cough R05 Active Assessment Irregular heart rate I49.9 Active Problem Irregular heartbeat I49.9 Active Problem Nicotine dependence, uncomplicated, F17.200 Active unspecified nicotine product type Problem Menopause Z78.0 Active Problem Irregular heart rate I49.9 Active Problem PVC (premature ventricular I49.3 Active contraction) Problem Uncomplicated asthma, unspecified J45.909 Active asthma severity, unspecified whether persistent Problem Breast mass N63.0 Active Medications Medication Code Code Instructions Start End Status Dosage System Date Date ProAir HFA [facility] [id number] 108 (90 Base) Mar 09, Active 2 puffs MCG/ACT 2018 as needed Inhalation every 6 hrs Metoprolol [facility] 03887241150 25 MG Orally Mar 09, Active 1 tablet Succinate ER Once a day 2017 Diflucan [facility] 79332728597 150 MG Orally Mar 09, Feb 12, Active 1 tablet once 2017 2018 Amoxicillin [facility] 25667886736 875 MG Orally Mar 09, Feb 18, Active 1 tablet every 12 hrs 2017 2018 Results Name Result Date Reference Range Unit Abnormality Flag EKG Complete Summary Purpose eClinicalWorks Submission
--- NOTE | 2019-05-31 12:26 | RAD REPORT ---
EXAM DESCRIPTION: Rjei Single View05/31/2019 11:32 am CLINICAL HISTORY: Cough COMPARISON: 2017 FINDINGS: The lungs appear clear of acute infiltrate. The heart is normal size IMPRESSION: No acute abnormalities displayed
[2019-05-31 12:28] LABS: Absolute Lymphocytes (CBC) 1.2 K/uL (0.7-4.9); Basophils % 0.5 % (0-1.3); Hematocrit 46.1 % (36.0-45.0); Lymphocytes % 14.2 % (15.3-44.8); MPV 11.3 fL (7.6-11.3); RBC Red Blood Cell Count 4.79 M/uL (3.86-4.86)
[2019-05-31] MEDS ORDERED: IPRATROPIUM BROM 0.5MG/2.5ML ONE (12:28)
[2019-05-31] MEDS ORDERED: ALBUTEROL 2.5 MG/3 ML NEB SOL ONE (12:28)
[2019-05-31 13:07] LABS: Protime INR 0.93
[2019-05-31 13:10] LABS: ALT/SGPT 28 U/L (12-78); Albumin 4.1 g/dL (3.4-5.0); Alkaline Phosphatase 92 U/L (45-117); BUN Blood Urea Nitrogen 16 mg/dL (7-18); Bicarbonate 26 mmol/L (21-32); Bilirubin Direct 0.1 mg/dL (0-0.2); Bilirubin Total 0.3 mg/dL (0.2-1.0); CKMB Creatine Kinase MB 4.3 ng/mL (0.3-3.6); Creatine Phosphokinase 176 U/L (26-192); Glucose Level 104 mg/dL (74-106); Lipase 109 U/L (73-393); NT PRO-BNP 556 pg/mL (<125); Protein, Total 8.1 g/dL (6.4-8.2); Sodium Level 141 mmol/L (136-145); Troponin (Emerg Dept Use Only) < 0.02 ng/mL (0.0-0.045)
[2019-05-31 13:14] LABS: AST/SGOT 25 U/L (15-37); Magnesium 2.4 mg/dL (1.8-2.4); Potassium 4.2 mmol/L (3.5-5.1)
[2019-05-31] MEDS ORDERED: METHYLPREDNISOLONE 125 MG INJ ONE (13:34)
--- NOTE | 2019-05-31 13:37 | ER ---
Nurse's Notes [facility] Name: Alivia Gentile Age: 59 yrs Sex: Female : 1960 Arrival Date: 05/31/2019 Time: 10:52 Bed 4 Private MD: Diagnosis: Acute bronchospasm Presentation: 05/30 10:56 Chief complaint: Patient states: Cough and congestion since yesterday. SOB today. ca1 History of Asthma. Denies fever. Coronavirus screen: The patient has NOT traveled to [place] in the past 14 days. The patient has NOT had contact with known and/or suspected case of Coronavirus. Ebola Screen: Patient negative for fever greater than or equal to 101.5 degrees Fahrenheit, and additional compatible Ebola Virus Disease symptoms Patient denies exposure to infectious person. Patient denies travel to an Ebola-affected area in the 21 days before illness onset. No symptoms or risks identified at this time. Initial Sepsis Screen: Does the patient meet any 2 criteria? No. Patient's initial sepsis screen is negative. Does the patient have a suspected source of infection? No. Patient's initial sepsis screen is negative. Risk Assessment: Do you want to hurt yourself or someone else? Patient reports no desire to harm self or others. Onset of symptoms was May 31, 2019. 10:56 Method Of Arrival: Ambulatory ca1 10:56 Acuity: EILEEN 3 ca1 Triage Assessment: 11:02 Respiratory: Onset: The symptoms/episode began/occurred yesterday, the patient has mild rb1 shortness of breath. Historical: - Allergies: 10:59 No Known Allergies; ca1 - Home Meds: 10:59 metoprolol tartrate 25 mg Oral tab 1 tab once daily [Active]; ca1 - PMHx: 10:59 Asthma; Bronchitis; Iregular Heart Rate; ca1 - PSHx: 10:59 Tubal ligation; ca1 - Immunization history:: Adult Immunizations up to date, Flu vaccine is not up to date. - Social history:: Smoking status: Patient reports the use of cigarette tobacco products, smokes one pack cigarettes per day. Screenin:02 Abuse screen: Denies threats or abuse. Nutritional screening: No deficits noted. rb1 Tuberculosis screening: No symptoms or risk factors identified. Fall Risk None identified. Assessment: 11:02 General: Appears uncomfortable, Behavior is calm, cooperative, Denies fever. Pain: rb1 Complains of pain in ribs Pain currently is 6 out of 10 on a pain scale. Aggravated by deep breathing. Neuro: Cardiovascular: Capillary refill < 3 seconds is brisk in bilateral fingers. Respiratory: Reports shortness of breath cough that is Airway is patent Respiratory effort is even, unlabored, Respiratory pattern is regular, symmetrical. GI: No signs and/or symptoms were reported involving the gastrointestinal system. : No signs and/or symptoms were reported regarding the genitourinary system. Derm: Skin is pink, warm \T\ dry. 12:12 Reassessment: PT AMBULATED TO BATHROOM WITHOUT DIFFICULTY. ALL CURRENT ORDERS COMPLETE, bp RESULTS PENDING. Cardiovascular: Rhythm is sinus rhythm. Respiratory: Breath sounds are clear bilaterally. 13:10 Reassessment: Patient appears in no apparent distress at this time. Patient and/or rb1 family updated on plan of care and expected duration. Pain level reassessed. Patient is alert, oriented x 3, equal unlabored respirations, skin warm/dry/pink. Patient states feeling better. Patient states symptoms have improved. Vital Signs: 10:56 BP 143 / 106; Pulse 51; Resp 20 S; Temp 97.7(TE); Pulse Ox 93% on R/A; Weight 66.68 kg ca1 (R); Height 5 ft. 1 in. (154.94 cm); 11:02 BP 144 / 96; Pulse 51; Resp 19; Pulse Ox 96% on R/A; Pain 6/10; rb1 12:11 BP 121 / 96; Pulse 104; Resp 17; Pulse Ox 94% ; bp 13:08 BP 152 / 63; Pulse 50; Resp 16; Pulse Ox 100% ; bp 10:56 Body Mass Index 27.78 (66.68 kg, 154.94 cm) ca1 ED Course: 10:52 Patient arrived in ED. fj1 10:58 Triage completed. ca1 10:59 Arm band placed on right wrist. ca1 11:00 Dulce Conklin, RN is Primary Nurse. rb1 11:02 Patient has correct armband on for positive identification. Placed in gown. Bed in low rb1 position. Call light in reach. Side rails up X 1. Pulse ox on. NIBP on. Warm blanket given. 11:04 Robert Loya MD is Attending Physician. tw4 12:05 Inserted saline lock: 22 gauge in right antecubital area, using aseptic technique. bp Blood collected. 12:14 XRAY CXR (1 view) In Process Unspecified. EDMS 12:43 Primary Nurse role handed off by Dulce Conklin, LAWSON bp 12:43 Bridger Dhaliwal, RN is Primary Nurse. bp 13:45 Primary Nurse role handed off by Bridger Dhaliwal, LAWSON rb1 13:45 Dulce Conklin, LAWSON is Primary Nurse. rb1 13:45 No provider procedures requiring assistance completed. IV discontinued, intact, rb1 bleeding controlled, No redness/swelling at site. Pressure dressing applied. Administered Medications: 12:28 Drug: DuoNeb (3:1) (2.5 mg - 0.5 mg) 3 ml Route: Nebulizer; rb1 13:00 Follow up: Response: No adverse reaction rb1 13:36 Drug: SOLU-Medrol 125 mg Route: IVP; Site: right antecubital; rb1 13:46 Follow up: Response: No adverse reaction rb1 Outcome: 13:35 Discharge ordered by . eugenia 13:45 Discharged to home ambulatory, with family. rb1 13:45 Condition: stable 13:45 Discharge instructions given to patient, Instructed on discharge instructions, follow up and referral plans. medication usage, Demonstrated understanding of instructions, follow-up care, medications, Prescriptions given X 3. 13:46 Patient left the ED. rb1 Signatures: Dispatcher [employer] EDMS Dulce Conklin, LAWSON RN rb1 Bridger Dhaliwal, RN RN Robert Cuevas MD MD tw4 Acob, Cheryl, RN RN Vitaliy Schaeffer [facility]
--- NOTE | 2019-05-31 13:37 | EDPHYS ---
Physician Documentation [facility] Name: Alivia Gentile Age: 59 yrs Sex: Female : 1960 Arrival Date: 05/31/2019 Time: 10:52 Bed 4 Private MD: ED Physician Robert Loya HPI: 05/30 13:40 This 59 yrs old Female presents to ER via Ambulatory with complaints of tw4 Breathing Difficulty, Painful Cough. Historical: - Allergies: : No Known Allergies; ca1 - Home Meds: : metoprolol tartrate 25 mg Oral tab 1 tab once daily [Active]; ca1 - PMHx: : Asthma; Bronchitis; Iregular Heart Rate; ca1 - PSHx: : Tubal ligation; ca1 - Immunization history:: Adult Immunizations up to date, Flu vaccine is not up to date. - Social history:: Smoking status: Patient reports the use of cigarette tobacco products, smokes one pack cigarettes per day. ROS: 21:20 Constitutional: Negative for fever, chills, and weight loss, Eyes: Negative for injury, tw4 pain, redness, and discharge, Cardiovascular: Negative for chest pain, palpitations, and edema, Abdomen/GI: Negative for abdominal pain, nausea, vomiting, diarrhea, and constipation, Back: Negative for injury and pain, MS/Extremity: Negative for injury and deformity, Skin: Negative for injury, rash, and discoloration, Neuro: Negative for headache, weakness, numbness, tingling, and seizure. 21:20 Respiratory: Positive for cough, shortness of breath, wheezing, Negative for dyspnea on exertion, hemoptysis, orthopnea, pleurisy. Exam: 21:20 Constitutional: This is a well developed, well nourished patient who is awake, alert, tw4 and in no acute distress. Eyes: Pupils equal round and reactive to light, extra-ocular motions intact. Lids and lashes normal. Conjunctiva and sclera are non-icteric and not injected. Cornea within normal limits. Periorbital areas with no swelling, redness, or edema. Chest/axilla: Normal chest wall appearance and motion. Nontender with no deformity. No lesions are appreciated. Cardiovascular: Regular rate and rhythm with a normal S1 and S2. No gallops, murmurs, or rubs. Normal PMI, no JVD. No pulse deficits. Abdomen/GI: Soft, non-tender, with normal bowel sounds. No distension or tympany. No guarding or rebound. No evidence of tenderness throughout. Back: No spinal tenderness. No costovertebral tenderness. Full range of motion. Skin: Warm, dry with normal turgor. Normal color with no rashes, no lesions, and no evidence of cellulitis. 21:20 MS/ Extremity: Pulses equal, no cyanosis. Neurovascular intact. Full, normal range of motion. Neuro: Awake and alert, GCS 15, oriented to person, place, time, and situation. Cranial nerves II-XII grossly intact. Motor strength 5/5 in all extremities. Sensory grossly intact. Cerebellar exam normal. Normal gait. 21:20 Respiratory: mild respiratory distress is noted, Respirations: labored breathing, Breath sounds: wheezing: Vital Signs: 10:56 BP 143 / 106; Pulse 51; Resp 20 S; Temp 97.7(TE); Pulse Ox 93% on R/A; Weight 66.68 kg ca1 (R); Height 5 ft. 1 in. (154.94 cm); 11:02 BP 144 / 96; Pulse 51; Resp 19; Pulse Ox 96% on R/A; Pain 6/10; rb1 12:11 BP 121 / 96; Pulse 104; Resp 17; Pulse Ox 94% ; bp 13:08 BP 152 / 63; Pulse 50; Resp 16; Pulse Ox 100% ; bp 10:56 Body Mass Index 27.78 (66.68 kg, 154.94 cm) ca1 MDM: 11:04 Patient medically screened. tw4 21:20 Differential diagnosis: Anemia CHF exacerbation. Antibiotic administration: Not tw4 indicated. Data reviewed: vital signs, nurses notes. Counseling: I had a detailed discussion with the patient and/or guardian regarding: the historical points, exam findings, and any diagnostic results supporting the discharge/admit diagnosis. Medication response: Response to treatment: the patient's symptoms have markedly improved after treatment, and as a result, I will discharge patient. Special discussion: I discussed with the patient/guardian in detail that at this point there is no indication for admission to the hospital. It is understood, however, that if the symptoms persist or worsen the patient needs to return immediately for re-evaluation. 05/30 11:14 Order name: Blood Culture Adult (2) 05/30 11:14 Order name: BMP; Complete Time: 13:20 [facility] 05/30 13:20 Interpretation: Normal except: CL 108; GFR 52. 05/30 11:14 Order name: CBC with Diff; Complete Time: 13:20 05/30 13:21 Interpretation: Normal except: HGB 15.5; HCT 46.1; MN% 2.5; LYM% 14.2; MELLISA% 81.0. 05/30 11:14 Order name: Ckmb; Complete Time: 13:20 [facility] 05/30 13:21 Interpretation: Normal except: CKMB 4.3. 05/30 11:14 Order name: CPK; Complete Time: 13:20 [facility] 05/30 13:21 Interpretation: Normal except: CPK 176. 05/30 11:14 Order name: Hepatic Function; Complete Time: 13:20 [facility] 05/30 13:21 Interpretation: Normal except: GLOB 4.0; A/G 1.0. 05/30 11:14 Order name: XRAY CXR (1 view); Complete Time: 13:05 05/30 13:06 Interpretation: No acute disease. 05/30 11:14 Order name: Lipase; Complete Time: 13:20 [facility] 05/30 13:22 Interpretation: Within normal limits: LIP 109. 05/30 11:14 Order name: Magnesium; Complete Time: 13:20 [facility] 05/30 13:22 Interpretation: Within normal limits: MG 2.4. 05/30 11:14 Order name: NT PRO-BNP; Complete Time: 13:20 [facility] 05/30 13:21 Interpretation: Normal except: NT PRO-BNP 556. 05/30 11:14 Order name: PT-INR; Complete Time: 13:20 [facility] 05/30 13:22 Interpretation: Within normal limits: PT 11.1. 05/30 11:14 Order name: Ptt, Activated; Complete Time: 13:20 [facility] 05/30 13:22 Interpretation: Within normal limits: PTT 28.5. 05/30 11:14 Order name: Troponin (emerg Dept Use Only); Complete Time: 13:20 [facility] 05/30 13:22 Interpretation: Within normal limits: TROPED < 0.02. tw4 05/30 11:14 Order name: Flu; Complete Time: 13:06 tw4 05/30 13:06 Interpretation: Within normal limits. tw4 05/30 11:14 Order name: Cardiac monitoring; Complete Time: 12:10 tw4 05/30 11:14 Order name: IV Saline Lock; Complete Time: 12:10 tw4 05/30 11:14 Order name: Labs collected and sent; Complete Time: 12:10 tw4 05/30 11:14 Order name: O2 Per Protocol; Complete Time: 12:10 tw4 05/30 11:14 Order name: O2 Sat Monitoring; Complete Time: 12:10 tw4 Administered Medications: 12:28 Drug: DuoNeb (3:1) (2.5 mg - 0.5 mg) 3 ml Route: Nebulizer; rb1 13:00 Follow up: Response: No adverse reaction rb1 13:36 Drug: SOLU-Medrol 125 mg Route: IVP; Site: right antecubital; rb1 13:46 Follow up: Response: No adverse reaction rb1 Disposition: 05/31/19 13:35 Discharged to Home. Impression: Acute bronchospasm. - Condition is Stable. - Discharge Instructions: Bronchospasm, Adult, Asthma, Adult, [id number]. - Prescriptions for Tessalon Perles 100 mg Oral Capsule - take 1 capsule by ORAL route every 8 hours As needed; 15 capsule. Medrol (Eduar) 4 mg Oral Tablets, Dose Pack - take 1 tablet by ORAL route as directed - follow package instructions; 1 packet. Albuterol Sulfate 90 mcg/actuation - inhale 1-2 puff by INHALATION route every 4-6 hours; 1 Inhaler. - Medication Reconciliation Form, Thank You Letter, Antibiotic Education, Prescription Opioid Use form. - Follow up: Private Physician; When: Upon discharge from the Emergency Department; Reason: Recheck today's complaints, Continuance of care, Re-evaluation by your physician. - Problem is new. - Symptoms have improved. Signatures: Dispatcher [employer] Dulce Arzola, RN RN rb1 Robert Loya MD MD tw4 Janel Campbell RN RN ca1 Corrections: (The following items were deleted from the chart) 13:46 13:35 05/31/2019 13:35 Discharged to Home. Impression: Acute bronchospasm. Condition is rb1 Stable. Forms are Medication Reconciliation Form, Thank You Letter, Antibiotic Education, Prescription Opioid Use. Follow up: Private Physician; When: Upon discharge from the Emergency Department; Reason: Recheck today's complaints, Continuance of care, Re-evaluation by your physician. Problem is new. Symptoms have improved. tw4
[2019-05-31 14:37] VITALS: TEMP 97.7
[2019-05-31 14:41] VITALS: BP 152/63; O2SAT 100
== END 2019-05-31 13:46 | disposition home or self-care (01) ==
LOC: ER 10:47
DX: J98.01 Acute bronchospasm (principal); F17.210 Nicotine dependence, cigarettes, uncomplicated
CPT/HCPCS: 87040 ×2; 85025; 80048; 36415; 83735; 82550; 85610; 80076; 85730; 84484; 82553; 83690; 83880; 87804 ×2; 71045; 94640; 96374; 99285; J2930

== ENCOUNTER 2020-11-02 14:58 | Emergency (ER) | payer BC ==
--- OUTSIDE RECORDS SUMMARY | 2020-11-02 15:02 | XMS REPORT | Continuity of Care Document ---
:1960 Author Organization [facility] t Address 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 neuritis 04-09 00:00: Hospita 00 l Hyperlipid Hyperlipid Disease Active [facility] emia emia 04-09 00:00: Hospita 00 l Vision Vision Disease Active [facility] loss loss 04-02 00:00: Hospita 00 l Papilledem Papilledem Disease Active 0 M [facility] a a 04-01 00:00: Hospita 00 l Sinusitis Sinusitis Problem Active [facility] Irregular Irregular Problem Active [facility] heartbeat heartbeat [facility] - [facility] Nicotine Nicotine Problem [facility] dependence dependence Ashley kes - , , [facility] uncomplica uncomplica l kwan, kwan, Outpati unspecifie unspecifie en t d nicotine d nicotine Cl inics product product type type Menopause Menopause Problem Active [facility] PVC PVC Problem Active [facility] (premature (premature Ashley kes - ventricula ventricula Me moria r r l contractio contractio Ou tpati n) n) ent Clinics Uncomplica Uncomplica Problem Active [facility] k[facility] k[facility] - asthma, asthma, [facility] unspecifie unspecifie l d asthma d asthma Outpat i severity, severity, ent unspecifie unspecifie Cl inics d whether d whether persistent persistent Other Other Problem Active [facility] headache headache [facility] - syndrome syndrome [facility] Seasonal Seasonal Problem Active [facility] allergies allergies [facility] - [facility] Stress Stress Problem Active [facility] incontinen incontinen Ashley kes - ce of ce of Memoria urine urine l [facility] Clinics Type 2 Type [address] [facility] diabetes diabetes [facility] - mellitus mellitus Memori a with with l hyperglyce hyperglyce Ou tpati chandra, chandra, ent without without Clinics long-term long-term current current use of use of insulin insulin Allergies, Adverse Reactions, Alerts This patient has no known allergies or adverse reactions. Family History Family Member Diagnosis Comments Start Date Stop Date Source Natural father Diabetes [facility] Natural mother Diabetes type II Meth [facility] Natural mother [facility] Natural mother Hypertension [facility] Social History Social Habit Start Date Stop Date Quantity Comments Source History of tobacco Cigarette Smoker [facility] use [facility] Tobacco use and 2018-05-25 2018-05-25 Never used [facility] exposure 00:00:00 00:00:00 Hospital Alcohol intake 2018-05-25 2018-05-25 Current drinker [facility] 00:[facility]:00:00 of alcohol Hospital (finding) Cigarettes smoked 2018-05-25 2018-05-[address] [facility] C[facility]arette 2018-05-25 2018-05-25 [facility] pack-years 00:00:00 00:00:00 Hospital Alcohol Comment 2018-04-09 2018-04-[address] 00:00:00 00[facility]00:00 Hospital Sex Ass[birth year] At [birth year] [facility] 00:00:00 00:00:00 Hospital Smoking Status Start Date Stop Date Source Current every day smoker 2018-05-[facility] Medications Ordered Filled Start Stop Current Ordering Indication Dosage Frequency Signature Comments Components Source Medication Medication Date Date Medication? Clinician (SIG) Name Name Oxybutynin Oxybutynin 2019-0 2020- No Nicole [address] [facility] Chloride ER Chloride ER 09-28 Lilian Ramirezkes - 00:00: 00:00 [facility] 00 :[facility] l Outpati ent Clinics No known No [facility] Procedures This patient has no known procedures. Plan of Care Planned Activity Planned Date Details Comments Source Future Scheduled Test DIABETES: RETINAL EYE [facility] EXAM [code = DIABETES: RETINAL EYE EXAM] Future Scheduled Test DIABETIC FOOT EXAM [facility] [code = DIABETIC FOOT EXAM] Future Scheduled Test URINE MICROALBUMIN [facility] [code = URINE MICROALBUMIN] Future Scheduled Test COVID-19 VACCINE (1) [facility] [code = COVID-19 VACCINE (1)] Future Scheduled Test Hepatitis C screening [facility] (procedure) [code = 579813432] Future Scheduled Test BREAST CANCER SCREENING [facility] [code = BREAST CANCER SCREENING] Future Scheduled Test COLONOSCOPY SCREENING [facility] [code = COLONOSCOPY SCREENING] Future Scheduled Test SHINGLES VACCINES (#1) [facility] [code = SHINGLES VACCINES (#1)] Future Scheduled Test INFLUENZA VACCINE [code [facility] = INFLUENZA VACCINE] Future Scheduled Test Screening for malignant [facility] neoplasm of cervix (procedure) [code = 763702723] Encounters Start End Encounter Admission Attending Care Care Encounter Source Date/Time Date/Time Type Type Clinicians Facility Department ID 2019-09-29 2019-09-29 Outpatient [facility] [id number] [facility] 10:31:00 10:31:00 [facility] Medicine Medicine Outpati ent Clinics 2019-09-19 2019-09-19 [facility] [id number] [facility] 11[facility]27:00 11:27:00 [facility] Family Medicine l Medicine Outpati ent Clinics 2019-09-12 2019-09-12 [facility] [id number] [facility] 20:45:00 20:45:00 [facility] Family Medicine l Medicine Outpati ent Clinics 2019-09-12 2019-09-12 [place] [id number] [facility] 14:00:00 14:00:00 [facility] Medicine l Medicine Outpati ent Clinics 2019-08-29 2019-08-29 Outpatient [facility] [id number] [facility] 08:00:00 08:00:00 [facility] Medicine Outpati ent Clinics 2018-10-19 2018-10-19 [facility] [id number] 11:40:00 11:40:00 [facility] Medicine Outpati ent Clinics 2018-08-10 2018-08-10 [facility] [id number] 14:15:00 14:15:00 [facility] Medicine Outpati ent Clinics 2018-04-26 2018-04-26 [facility] [id number] [facility] 16:00:00 16:00:00 [facility] Medicine Outpati ent Clinics 2018-03-24 2018-03-24 [facility] [id number] [facility] 13:00:00 13:00:00 [facility] Medicine Outpati ent Clinics 2018-03-09 2018-03-09 [facility] [id number] 13:30:00 13:30:00 [facility] Medicine Outpati ent Clinics Results This patient has no known results.
--- NOTE | 2020-11-02 16:47 | RAD REPORT ---
EXAM DESCRIPTION: RAD - Chest Single View - 11/02/2020 4:33 pm CLINICAL HISTORY: PAIN Chest pain. COMPARISON: Chest Pa And Lat (2 Views) dated 09/05/2020hest Single View dated 05/31/2019; Chest Single View dated 03/26/2018; Chest Single View dated 11/07/2017; Chest Single View dated 10/24/2016 FINDINGS: Portable technique limits examination quality. Hazy left lung base is noted which may indicate a mild infiltrate/ pleural effusion. The heart is nor mal in size. No displaced fractures.
--- NOTE | 2020-11-02 17:27 | RAD REPORT ---
EXAM DESCRIPTION: US - Abdomen Exam Limited - 11/02/2020 5:19 pm CLINICAL HISTORY: PAIN COMPARISON: No comparisons FINDINGS: The gallbladder is poorly assessed due to contraction from recent meal. The common bile du ct is normal measuring 5 mm.. The liver demonstrates no findings of intrahepatic biliary dilatation. IMPRESSION: Gallbladder is incompletely assessed to contraction related to recent meal. Suggest repe at study after appropriate fasting if clinically indicated. No evidence of biliary dilatation.
[2020-11-02] MEDS ORDERED: MORPHINE 4 MG/ML SYR ONE (21:56)
[2020-11-02] MEDS ORDERED: FAMOTIDINE 20 MG/2 ML VIAL IV ONE (21:56)
[2020-11-02] MEDS ORDERED: MECLIZINE HCL 12.5 MG TAB ONE (21:56)
[2020-11-02] MEDS ORDERED: NA CHLORIDE 0.9% 1,000 ML ONE (21:56)
[2020-11-02] MEDS ORDERED: ONDANSETRON 4 MG/2 ML VIAL ONE (21:56)
[2020-11-02 22:06] LABS: Basophils % 0.5 % (0-1.3); Hematocrit 42.9 % (36.0-45.0); Lymphocytes % 22.5 % (15.3-44.8); MPV 10.1 fL (7.6-11.3); RBC Red Blood Cell Count 4.47 M/uL (3.86-4.86)
[2020-11-02 22:16] LABS: Albumin 3.3 g/dL (3.4-5.0); Bilirubin Direct 0.1 mg/dL (0-0.2); Bilirubin Total 0.4 mg/dL (0.2-1.0); Potassium 3.9 mmol/L (3.5-5.1)
[2020-11-03 00:07] LABS: Urine Blood Trace-intact (Negative); Urine Glucose Negative (Negative); Urine Protein Negative (Negative); Urine Specific Gravity <=1.005 (1.005-1.030); Urine pH 5.5 (5.0-7.0)
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
[2020-11-03 00:29] LABS: Urine Bacteria <20 /HPF (<20); Urine Mucus 1+ /HPF (NONE SEEN); Urine RBC <5 /HPF (NONE SEEN)
[2020-11-03 01:16] VITALS: BP 118/66; TEMP 98.2; O2SAT 94
--- NOTE | 2020-11-03 20:05 | RAD REPORT ---
EXAM DESCRIPTION: CT - Head Brain Wo Cont - 11/03/2020 6:54 am CLINICAL HISTORY: 60 years, Female, DIZZINESS COMPARISON: None. FINDINGS: Multiple transaxial tomograms of the brain were obtained from the base of the skull to the vertex without contrast. 2-D multiplanar reformats and the coronal and sagittal plane were performed and reviewed. This exam was performed according to our departmental dose-optimization protocol, which includes auto mated exposure control, adjustment of the mA and/or kV according to patient size and/or use of iterat corie reconstruction technique. Brain parenchyma as well as the higuera and white matter differentiation demonstrate to be unremarkable. There is no midline shift and/or mass effect. There is no evidence for acute hemorrhage. Minimal vas cular calcifications are noted within the intracranial portion cavernous sinus. Lateral ventricles and cisterns displace normal appearance. No intra or extra axial fluid collections were seen. The c alvarium is intact with no evidence for fracture. The visualized portions of the paranasal sinuses mi nimal mucosal retention cyst right maxillary sinus. The mastoid air cells and orbits demonstrate to b e clear. IMPRESSION: No evidence for acute hemorrhage. Unremarkable CT scan of the head without contrast. Electronically signed by: Chong Canada MD 11/02/2020 10:50 PM CDT Due to temporary technical issues with the PACS/Fluency reporting system, reports are being signed by the in house radiologists without review as a courtesy to insure prompt reporting. The interpreting radiologist is fully responsible for the content of the report.
--- NOTE | 2020-11-03 20:13 | RAD REPORT ---
EXAM DESCRIPTION: CT - Abdomen Pelvis W Contrast - 11/03/2020 6:54 am CLINICAL HISTORY: 60 years, Female, ABD PAIN COMPARISON: None. CLINICAL HISTORY: Contrast-enhanced images of the abdomen and pelvis were performed utilizing 5 mm s lice thickness at 5 mm interval reconstruction from the lung bases to the ischial tuberosities after the administration of IV contrast. Subsequent delayed imaging through the kidneys and bladder were al so generated. In addition multiplanar reformats in the coronal and sagittal plane were obtained and reviewed. This exam was performed according to our departmental dose-optimization protocol, which includes auto mated exposure control, adjustment of the mA and/or kV according to patient size and/or use of iterat corie reconstruction technique. FINDINGS: The lung bases demonstrate minimal dependent atelectatic changes/groundglass densities on image 1, 5 and 8. The liver demonstrate decreased attenuation corresponding to mild fatty filtration. Otherwise the romina er, gallbladder, pancreas, spleen and adrenal glands demonstrate to be unremarkable, no focal lesions are noted. The kidneys demonstrate normal uptake and excretion of contrast media with no evidence for hydronephr osis. The ureters displays normal appearance. Grossly the unopacified stomach, small bowel and large bowel demonstrate to be within normal limits. There is no evidence for bowel dilatation/or free air There is diverticulosis within the sigmoid co misa. The appendix was not visualized. The urinary bladder demonstrate to be unremarkable. The uterus demonstrate to be within normal limi ts. There are no adnexal masses. The aorta demonstrate minimal atherosclerotic disease extending in to the aortic bifurcation. There is no retroperitoneal lymphadenopathy. There is no evidence for as cites and/or significant abnormal fluid collections. The bone windows demonstrate no significant abno rmalities. IMPRESSION: No acute intra-abdominal or pelvic pathology. Sigmoid diverticulosis without evidence for acute diverticulitis. Mild fatty infiltration of the liver. Minimal atherosclerotic disease of the aorta. Otherwise unremarkable CT scan of the abdomen and pelvis with contrast. Minimal groundglass densities bilateral lung bases. Imaging features can be seen in Covid 19 pneumoni a though are nonspecific and can occur with a variety of infectious and noninfectious processes. Electronically signed by: Chong Canada MD 11/02/2020 11:06 PM CDT Due to temporary technical issues with the PACS/Fluency reporting system, reports are being signed by the in house radiologists without review as a courtesy to insure prompt reporting. The interpreting radiologist is fully responsible for the content of the report.
== END 2020-11-03 00:43 | disposition home or self-care (01) ==
LOC: ER 14:58
DX: U07.1 COVID-19 (principal); J18.8 Other pneumonia, unspecified organism; R10.10 Upper abdominal pain, unspecified; F17.210 Nicotine dependence, cigarettes, uncomplicated
CPT/HCPCS: 96361; 85025; 80048; 36415; 80076; 83690; 70450; 74177; 71045; 76705; 96375; 96374; 99284; U0003; Q9967; J7030; J2405; 81003; 81015

== ENCOUNTER 2022-07-24 06:21 | Emergency (ER) | payer BC ==
--- OUTSIDE RECORDS SUMMARY | 2022-07-24 06:24 | XMS REPORT | Continuity of Care Document ---
:1960 Author Organization [facility] t Address [address] [place] [address] Care Team Providers Name Role Phone Nicole Obregon Primary Care Physician [phone] Nicole Quintana Attending Clinician Unavailable Payers Payer Name Policy Type Policy Number Effective Date Expiration Date S kilo [employer] 6 [id number] 2018 Common Spiri t [employer] Shield of 00:00:[address] [facility] Problems Condition Condition Condition Status Onset Resolution [...] Hospita 00 l Papilledem Papilledem Disease Active M ethodi a a 04-01 00:00: Hospita 00 l [id number] PVC Problem Active Common (premature Spirit ventricula - [facility] Cardiac Irregular Problem Active Commo n arrhythmia heartbeat Spi rit - [facility] Menopause Menopause Problem Active Com mon Spirit [facility] [id number] Stress Problem Active Common incontinen Spirit ce of - [facility] urine [facility] [id number] Sinusitis Problem Active Comm on chronic, Spirit frontal [facility] Asthma Uncomplica Problem Active Commo n without kwan Spirit status asthma, - [facility] asthm[facility] d asthma Lu severity, Medical unspecifie Center d whether persistent Tobacco Nicotine Problem Active Common user dependence Spirit , - [facility] un[facility]plic[facility], [facility] unspecifie Medica l d nicotine Center product type [id number] Other Problem Active Common headache [facility] syndrome [facility] [id number] Seasonal Problem Active Comm on allergies [facility] [id number] Mixed Problem Active Common hyperlipid Spirit emia [facility] Allergies, Adverse Reactions, Alerts This patient has no known allergies or adverse reactions. Family History Family Member Diagnosis Comments Start Date Stop Date Source Natural father Diabetes [facility] Natural mother Diabetes type II Meth [facility] Natural mother Hyperlipidemia Method [facility] Natural mother Hypertension [facility] Social History Social Habit Start Date Stop Date Quantity Comments Source History of Tobacco Current Smoker Co mmon Spirit - Use [facility] Gender identity [facility] Sexual orientation Method [facility] Alcohol intake 2018-05-25 2018-05-25 Current drinker [facility] 00:[facility]:00 [facility]:00 [facility] (finding) Tobacco use and 2018-05-25 2018-05-25 Never used [facility] exposure 00:00:00 00:00:00 [facility] Alcohol Comment 2018-04-09 2018-04-[address] 00:00:00 00:00:00 Hospital Cigarette 2018-04-01 2018-04-01 [facility] pack-years 00:00:00 00:00:00 Hospital Cigarettes smoked 2018-04-01 2018-04-[address] current (pack per 00:00:00 00:00:00 Hospita l ) - Reported Sex Ass[birth year] At [birth year] [facility] 00:00:00 00:00:00 Hospital Smoking Status Start Date Stop Date Source Current Smoker 2021-12-04 00:00:00 Common Spiri t [facility] Medications Ordered Filled Start Stop Current Ordering Indication Dosage Frequency Signature Comments Components Source Medication Medication Date Date Medication? Clinician (SIG) Name Name Amoxicillin Amoxicillin 2021- No 1{table BID Amoxicilli -Pot -Pot 05-22 t} n-Pot Clavulanate Clavulanate 00:00: 00:00 Clavulanat 875-125 MG 875-125 MG 00 :00 e 875-125 MG predniSONE predniSONE 2021- No 1{table QD predniSONE 10 MG 10 MG 05-22 t} 10 MG 00:00: 00:00 00 :00 Fluconazole Fluconazole 2021- No 1{table Fluconazol 150 MG 150 MG 05-22 t} e 150 MG 00:00: 00:00 00 :00 Atorvastati Atorvastati No 1{table QD Atorvastat n Calcium n Calcium 05-16 t} in Calcium 20 MG 20 MG 00:00: 20 MG 00 Symbicort Symbicort 2021- No 2{puffs BID 160-4.5 160-4.5 05-02 } MCG/ACT MCG/ACT 00:00: 00:00 00 :00 Symbicort Symbicort 2021- No 2{puffs BID Symbicort 160-4.5 160-4.5 05-02 } 160-4.5 MCG/ACT MCG/ACT 00:00: 00:00 MCG/ACT 00 :00 Symbicort Symbicort 2021- No 2{puffs BID Symbicort 160-4.5 160-4.5 05-02 } 160-4.5 MCG/ACT MCG/ACT 00:00: 00:00 MCG/ACT 00 :00 Fluconazole Fluconazole 2020-03- No 1{table Fluconazol 150 MG 150 MG 04-30 t} e 150 MG 00:00: 00:00 00 :00 Oxybutynin Oxybutynin 2020- No Nicole 1 tablet Common Chloride ER Chloride ER 09-28 [place] Spirit 00:00: 00:00 - [facility]I 00 :00 [facility] metFORMIN metFORMIN No 1{table QD metFORMIN HCl ER 750 HCl ER 750 6-15 t_with_ HCl ER 750 MG MG 00:00: evening MG 00 _meal} metFORMIN metFORMIN 0 No 1{table QD HCl ER 750 HCl ER 750 6-15 t_with_ MG MG 00:00: evening 00 _meal} metFORMIN metFORMIN No 1{table QD metFORMIN HCl ER 750 HCl ER 750 6-15 t_with_ HCl ER 750 MG MG 00:00: evening MG 00 _meal} Phenergan Phenergan 2017-03 No 25mg Com mon (Promethazi (Promethazi 2-26 S pirit ne) ne) 00:00: - CHI 00 [facility] Toradol Toradol 2017-03 No 60mg Common (Ketorolac) (Ketorolac) 2-26 S pirit 00:00: - CHI 00 [facility] Phenergan Phenergan 2017-03 No 25mg Com mon (Promethazi (Promethazi 2-26 S pirit ne) ne) 00:00: - CHI 00 [facility] Toradol Toradol 2017-03 No 60mg Common (Ketorolac) (Ketorolac) 2-26 S pirit 00:00: - CHI 00 [facility] Phenergan Phenergan 2017-03 No 25mg Com mon (Promethazi (Promethazi 2-26 S pirit ne) ne) 00:00: - CHI 00 [facility] Toradol Toradol 2017-03 No 60mg Common (Ketorolac) (Ketorolac) 2-26 S pirit 00:00: - CHI 00 [facility] Albuterol Albuterol No Sulfate HFA Sulfate HFA 108 (90 108 (90 Base) Base) MCG/ACT MCG/ACT Breo Breo No 1{puff} QD Ellipta Ellipta 100-25 100-25 MCG/INH MCG/INH Breo Breo No 1{puff} QD Breo Ellipta Ellipta Ellipta 100-25 100-25 100-25 MCG/INH MCG/INH MCG/INH Albuterol Albuterol No Albuterol Sulfate HFA Sulfate HFA Sulfate 108 (90 108 (90 HFA 108 Base) Base) (90 Base) MCG/ACT MCG/ACT MCG/ACT Metoprolol Metoprolol No 1{table QD Metoprolol Succinate Succinate t} Succinate ER 25 MG ER 25 MG ER 25 MG Atorvastati Atorvastati No Atorvastat n Calcium n Calcium in Calcium 20 MG 20 MG 20 MG Metoprolol Metoprolol No Metoprolol Succinate Succinate Succinate ER 25 MG ER 25 MG ER 25 MG Atorvastati Atorvastati No 1{table QD Atorvastat n Calcium n Calcium t} in Calcium 20 MG 20 MG 20 MG Albuterol Albuterol No Albuterol Sulfate HFA Sulfate HFA Sulfate 108 (90 108 (90 HFA 108 Base) Base) (90 Base) MCG/ACT MCG/ACT MCG/ACT Breo Breo No 1{puff} QD Breo Ellipta Ellipta Ellipta 100-25 100-25 100-25 MCG/INH MCG/INH MCG/INH metFORMIN metFORMIN No metFORMIN HCl ER 750 HCl ER 750 HCl ER 750 MG MG MG metFORMIN metFORMIN No 1{table QD metFORMIN HCl ER 750 HCl ER 750 t_with_ HCl ER 750 MG MG evening MG _meal} Atorvastati Atorvastati No Atorvastat n Calcium n Calcium in Calcium 20 MG 20 MG 20 MG Breo Breo No 1{puff} QD Breo Ellipta Ellipta Ellipta 100-25 100-25 100-25 MCG/INH MCG/INH MCG/INH metFORMIN metFORMIN No 1{table QD metFORMIN HCl ER 750 HCl ER 750 t_with_ HCl ER 750 MG MG evening MG _meal} Atorvastati Atorvastati No 1{table QD Atorvastat n Calcium n Calcium t} in Calcium 20 MG 20 MG 20 MG Metoprolol Metoprolol No Metoprolol Succinate Succinate Succinate ER 25 MG ER 25 MG ER 25 MG Albuterol Albuterol No Albuterol Sulfate HFA Sulfate HFA Sulfate 108 (90 108 (90 HFA 108 Base) Base) (90 Base) MCG/ACT MCG/ACT MCG/ACT No known No [facility] Metoprolol Metoprolol No 1{table QD Metoprolol Succinate Succinate t} Succinate ER 25 MG ER 25 MG ER 25 MG Breo Breo No 1{puff} QD Breo Ellipta Ellipta Ellipta 100-25 100-25 100-25 MCG/INH MCG/INH MCG/INH Albuterol Albuterol No Albuterol Sulfate HFA Sulfate HFA Sulfate 108 (90 108 (90 HFA 108 Base) Base) (90 Base) MCG/ACT MCG/ACT MCG/ACT Metoprolol Metoprolol No 1{table QD Succinate Succinate t} ER 25 MG ER 25 MG Vital Signs Vital Name Observation Time Observation Value Comments Source bmi 2021-12-04 16:00:00 28.91 kg/m2 [facility] oximetry 2021-12-04 16:00:00 95 % [facility] respiratory rate 2021-12-04 16:00:00 16 /min Comm on [facility] blood pressure 2021-12-04 16:00:00 104 mm[Hg] [facility] systolic [facility] blood pressure 2021-12-04 16:00:00 57 mm[Hg] [facility] diastolic [facility] height 2021-12-04 16:00:00 61 [in_i] [facility] weight 2021-12-04 16:00:00 153 [lb_av] [facility] temperature 2021-12-04 16:00:00 97.3 [degF] [facility] height 2021-08-13 08:40:00 61 [in_i] [facility] weight 2021-08-13 08:40:00 154.6 [lb_av] [facility] temperature 2021-08-13 08:40:00 97.3 [degF] [facility] bmi 2021-08-13 08:40:00 29.21 kg/m2 [facility] oximetry 2021-08-13 08:40:00 95 % [facility] respiratory rate 2021-08-13 08:40:00 16 /min Comm on [facility] blood pressure 2021-08-13 08:40:00 119 mm[Hg] Common [facility] systolic [facility] blood pressure 2021-08-13 08:40:00 71 mm[Hg] [facility] diastolic [facility] height 2021-05-02 08:00:00 61 [in_i] [facility] weight 2021-05-02 08:00:00 164 [lb_av] [facility] temperature 2021-05-02 08:00:00 97.2 [degF] [facility] bmi 2021-05-02 08:00:00 30.98 kg/m2 [facility] oximetry 2021-05-02 08:00:00 95 % [facility] respiratory rate 2021-05-02 08:00:00 16 /min Comm on [facility] blood pressure 2021-05-02 08:00:00 134 mm[Hg] [facility] systolic [facility] blood pressure 2021-05-02 08:00:00 63 mm[Hg] [facility] diastolic [facility] Procedures This patient has no known procedures. Plan of Care Planned Activity Planned Date Details Comments Source Future Scheduled 2022-06-29 COVID-19 VACCINE (#1) [facility] Test 03:45:47 [code = COVID-19 VACCINE (#1)] Future Scheduled 2022-06-29 [facility] Test 03:45:47 malignant neoplasm of cervix (procedure) [code = 394805266] Future Scheduled 2022-06-29 BREAST [facility]CER [facility] Test 03:45:47 SCREENING [code = BREAST CANCER SCREENING] Future Scheduled 2022-06-29 COLONOSCOPY SCREENING [facility] Test 03:45:47 [code = COLONOSCOPY SCREENING] Future Scheduled 2022-06-29 SHINGLES VACCINES (1 [facility] Test 03:45:47 of 2) [code = SHINGLES VACCINES (1 of 2)] Future Scheduled 2022-06-29 INFLUENZA VACCINE [facility] 03:45:47 [code = INFLUENZA VACCINE] Future Scheduled COVID-19 VACCINE (1) [facility] Test [code = COVID-19 VACCINE (1)] Future Scheduled Hepatitis C screening [facility] Test (procedure) [code = 209356401] Future Scheduled [facility]CER [facility] SCREENING [code = BREAST CANCER SCREENING] Future Scheduled [facility] [code = COLONOSCOPY SCREENING] Future Scheduled SHINGLES VACCINES (#[facility]) [facility] [code = SHINGLES VACCINES (#1)] Future Scheduled INFLUENZA VACCINE [facility] [code = INFLUENZA VACCINE] Future Scheduled [facility] Test malignant neoplasm of cervix (procedure) [code = 099885402] Future Scheduled DIABETES: RETINAL EYE [facility] EXAM [code = DIABETES: RETINAL EYE EXAM] Future Scheduled DIABETIC FOOT EXAM [facility] [code = DIABETIC FOOT EXAM] Future Scheduled URINE MICROALBUMIN [facility] Test [code = URINE MICROALBUMIN] Encounters Start End Encounter Admission Attending Care Care Encounter Source Date/Time Date/Time Type Type Clinicians Facility Department ID 2022-04-16 Outpatient [place], STLMLC STLMLC [id number] Common 09:36:01 Nicole [id number] [facility] 2021-11-13 Outpatient [place], STLMLC STLMLC [id number] Common 11:35:00 Nicole [facility] 2021-08-09 Outpatient [place], STLMLC STLMLC [id number] Common 08:46:00 Nicole [facility] 2021-05-14 Outpatient [place], STLMLC STLMLC [id number] Common 14:00:02 Nicole [facility] 2021-05-02 Outpatient [place], STLMLC STLMLC [id number] Common 08:02:00 Nicole [facility] 2021-12-04 2021-12-04 OFFICE STLC STLMLC [id number] Co mmon 00:00:00 00:00:00 VISIT EST Spir it PT LEVEL 3 [facility] 2021-08-13 2021-08-13 OFFICE STLMLC STLMLC [id number] Co mmon 00:00:00 00:00:00 VISIT EST Spir it PT LEVEL 3 [facility] 2021-05-22 2021-05-22 (TEL) STLMLC STLMLC [id number] Co mmon 00:00:00 00:00:00 [facility] 2021-05-02 2021-05-02 OFFICE STLMLC STLMLC [id number] Co mmon 00:00:00 00:00:00 VISIT Spirit ESTAB PT - CHI LEVEL 4 [facility] 2021-02-26 2021-02-26 (TEL) STLMLC STLMLC [id number] Co mmon 00:00:00 00:00:00 Spirit - [facility] 2020-11-01 2020-11-01 Outpatient STLMLC STLMLC [id number] Common 00:00:00 00:00:00 Spirit - [facility] 2019-09-29 2019-09-29 [id number] Common 10:31:00 10:31:[address] [facility] [address] [facility] 2019-09-19 2019-09-19 [facility] [id number] Common 11:27:00 11:27:00 [address] [facility] [address] [facility] 2019-09-12 2019-09-12 [facility] [id number] Common 20:45:00 20:45:00 [address] [facility] [address] [facility] 2019-09-12 2019-09-12 [facility] [id number] Common 14:00:00 14:00:00 t [facility] [address] [facility] 2019-08-29 2019-08-29 [facility] [id number] Common 08:00:00 08:00:00 t [facility] [address] [facility] 2018-10-19 2018-10-19 [facility] [id number] Common 11:40:00 11:40:00 [address] [facility] [address] [facility] 2018-08-10 2018-08-10 [facility] [id number] Common 14:15:00 14:15:00 t [facility] [address] [facility] 2018-04-26 2018-04-26 [facility] [id number] Common 16:00:00 16:00:00 t [facility] [address] [facility] 2018-03-24 2018-03-24 Outpatient [facility] [id number] Common 13:00:00 13:00:00 [facility] [address] [facility] 2018-03-09 2018-03-09 Outpatient [place] [id number] Common 13:30:00 13:30:00 [facility] [address] [facility] Results Test Description Test Time Test Comments Results Result Comments Source HEMOGLOBIN A1C 2021-08-13 00:00:00 Test Item Value Reference Range Interpretation Comme nts A1C (test code = 4548-4) 6.3
[2022-07-24] MEDS ORDERED: ALBUTEROL 2.5 MG/3 ML NEB SOL ONE ×2 (09:04→10:17)
[2022-07-24] MEDS ORDERED: IPRATROPIUM BROM 0.5MG/2.5ML ONE (09:05)
--- NOTE | 2022-07-24 09:24 | RAD REPORT ---
EXAM DESCRIPTION: RAD - Chest Single View - 07/24/2022 9:02 am CLINICAL HISTORY: COUGH Chest pain. COMPARISON: Chest Single View dated 11/02/2020; Chest Single View dated 05/31/2019; Chest Single View da kwan 03/26/2018; Chest Single View dated 11/07/2017 FINDINGS: Portable technique limits examination quality. The lungs are emphysematous but grossly clear. The heart is upper limit of normal in size. No displac ed fractures. IMPRESSION: COPD.
[2022-07-24 09:28] LABS: Absolute Lymphocytes (CBC) 2.1 K/uL (0.7-4.9); Hematocrit 41.8 % (36.0-45.0); Lymphocytes % 27.3 % (15.3-44.8); MCV 97.7 fL (80-100); MPV 9.3 fL (7.6-11.3); RBC Red Blood Cell Count 4.28 M/uL (3.86-4.86)
[2022-07-24 09:51] LABS: Potassium 4.2 mEq/L (3.5-5.1); Troponin High Sensitivity 13.3 pg/mL (<58.9)
[2022-07-24] MEDS ORDERED: METHYLPREDNISOLONE 125 MG INJ ONE (09:58)
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
[2022-07-24 11:35] VITALS: TEMP 98.3
[2022-07-24 11:37] VITALS: BP 138/74; O2SAT 96
--- NOTE | 2022-07-25 07:03 | EKG ---
Test Date: 2022-07-24 Test Time: 08:23:56 Remote Broadcast Engineer: ANJU MEASUREMENT RESULTS: Intervals: Rate: 95 [place]: 148 QRSD: 82 QT: 378 QTc: 475 [place]: P: 67 GA: 148 QRS: 81 T: 35 INTERPRETIVE STATEMENTS: Sinus rhythm with frequent premature ventricular complexes Otherwise normal ECG No previous ECG available for comparison Electronically Signed On 07-25-22 07:00:08 CDT by Manuel Lilly
== END 2022-07-24 11:26 | disposition home or self-care (01) ==
LOC: ER 06:21
DX: J44.9 Chronic obstructive pulmonary disease, unspecified (principal)
CPT/HCPCS: 93005; 85025; 80048; 36415; 84484; 71045; J7613 ×2; J7644; J2930

== ENCOUNTER → 2023-04-09 | Emergency (ER) | payer BC ==
[~2023-04-09] MED LIST: NA CHLORIDE 0.9% 500 ML ONE; ONDANSETRON 4 MG/2 ML VIAL ONE
[2023-04-09 12:31] LABS: Absolute Lymphocytes (CBC) 1.7 K/uL (0.7-4.9); Hematocrit 38.5 % (36.0-45.0); Lymphocytes % 24.2 % (15.3-44.8); MCV 96.1 fL (80-100); MPV 9.6 fL (7.6-11.3); Platelets 247 thou/uL (152-406); RBC Red Blood Cell Count 4.01 M/uL (3.86-4.86)
[2023-04-09 12:48] LABS: Albumin 3.3 g/dL (3.4-5.0); Bilirubin Total 0.2 mg/dL (0.2-1.0); Potassium 4.1 mEq/L (3.5-5.1); Protein, Total 7.1 g/dL (6.4-8.2); Troponin High Sensitivity 11.5 pg/mL (<58.9)
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
[2023-04-09 16:45] VITALS: TEMP 98.1
[2023-04-09 16:56] VITALS: BP 151/97; O2SAT 98
--- NOTE | 2023-04-10 13:25 | EKG ---
Test Date: 2023-04-09 Test Time: 11:48:30 Director Work: LASHAWN MEASUREMENT RESULTS: Intervals: Rate: 91 [place]: 160 QRSD: 82 QT: 370 QTc: 455 [place]: P: 67 [place]: 160 QRS: 73 T: 42 INTERPRETIVE STATEMENTS: Sinus rhythm with frequent premature ventricular complexes Otherwise normal ECG Compared to ECG 07/31/2022 18:47:03 Ventricular premature complex(es) now present Atrial premature complex(es) no longer present Aberrant conduction of supraventricular beat(s) no longer present Electronically Signed On 04-10-23 13:22:52 BELT GLASS SANDER by John Fried
== END ==
LOC: ER 11:00
DX: R11.10 Vomiting, unspecified (principal); Z98.818 Other dental procedure status; I10 Essential (primary) hypertension
CPT/HCPCS: 93005; 85025; 36415; 84484; 83690; 80053; 96374; 99285; J2405; J7040